=== PATIENT | female | born 1945 | race Caucasian/White ===

== ENCOUNTER → 2016-03-06 | Outpatient (CLI) | payer BC ==
[~2016-03-06] MED LIST: ALBU1AER9 PO; DOXY100C76 PO; ESCI1TAB10 PO; FENO48TA9 PO; FLUC150T PO; LEVO75TA PO; MEMA10TA PO; SPRIN/30 INH; TRIA0.1C55
[2016-03-06 13:28] LABS: BASO % 0.7 %; BASO ABS # 0.05 K/uL (0-0.2); COMPLETE YES; EOS % 5.4 %; IG% 0.1 %; LYMPH % 33.5 %; LYMPH ABS # 2.24 K/uL (1.2-3.4); MEAN CELL VOLUME 84.2 fL (80-100); MEAN CORPUSCULAR HEMOGLOBIN 27.3 pg (25-34); MEAN CORPUSCULAR HGB CONC 32.4 g/dl (32-36); NEUT % 53.3 %; PLATELET COUNT 349 K/uL (130-400); RED BLOOD COUNT 4.99 M/uL (4.2-5.4); WHITE BLOOD COUNT 6.69 K/uL (4.8-10.8)
[2016-03-06 13:36] LABS: ALT/SGPT 22 U/L (12-78); AST/SGOT 16 U/L (15-37); BLOOD UREA NITROGEN 14 mg/dl (7-18); BUN/CREATININE RATIO 12.4 (10-20); CALCIUM 9.8 mg/dl (8.5-10.1); CARBON DIOXIDE 29 mmol/L (21-32); CHLORIDE 105 mmol/L (98-107); CHOLESTEROL 219 mg/dl (0-200); GLUCOSE 91 mg/dl (70-99); POTASSIUM 4.2 mmol/L (3.5-5.1); SODIUM 142 mmol/L (136-145)
[2016-03-06 13:46] LABS: CHOLESTEROL/HDL RATIO 4.1; HDL CHOLESTEROL 53 mg/dl; LDL CHOLESTEROL CALCULATED 133 mg/dl; TRIGLYCERIDES 164 mg/dl (0-150); VERY LOW DENSITY LIPOPROT CALC 33 mg/dl
== END | disposition home or self-care (01) ==
LOC: C.LABMFLN 09:01
PROVIDERS: ATTEND Family Medicine
DX: E03.9 Hypothyroidism, unspecified (principal); E78.5 Hyperlipidemia, unspecified; R41.3 Other amnesia

== ENCOUNTER → 2016-03-15 | Outpatient (CLI) | payer BC ==
--- NOTE | 2016-03-15 11:39 | DIAGNOSTIC IMAGING REPORT ---
CERVICAL SPINE 5 VIEWS CLINICAL HISTORY: Neck pain. Injury several months ago. FINDINGS: AP, lateral, bilateral oblique, and odontoid views of the cervical spine are obtained. No prior studies are able for comparison at the time of dictation. The skeletal structures are osteopenic. There is no radiographic evidence of fracture or subluxation. There is straightening of the cervical lordosis. The odontoid process and lateral masses appear intact on the open-mouth view. The spinolaminar line is preserved. Vertebral body height is maintained. There is minimal anterolisthesis at C2-C3. Alignment is otherwise preserved. Anterior osteophytes are seen from C4 through C7. There is moderate degenerative disc space narrowing at C4-C5, C5-C6, and C6-C7. Posterior disc osteophyte complexes at these levels likely contribute to acquired compromise of the central canal. The spinous processes appear intact. There is mild bilateral neural foraminal stenosis seen from C4-C5 through C6-C7 on the oblique views. The prevertebral and paraspinous soft tissues are within normal limits. Visualized apical lung parenchyma is clear as imaged. IMPRESSION: 1. There is no radiographic evidence of fracture or malalignment involving the cervical spine. 2. Osteopenia and spondylotic change as above. Dictated: 03/15/2016 11:32 AM Transcribed: 03/15/2016 11:38 AM [email or web address] Electronically signed by: Freddy Collado M.D. 03/15/2016 11:44 AM Dictated Date/Time: 03/15/2016 11:32 AM
--- NOTE | 2016-03-15 11:46 | DIAGNOSTIC IMAGING REPORT ---
SINGLE VIEW CHEST CLINICAL HISTORY: COPD. Cough. FINDINGS: An AP, portable, upright chest radiograph is compared to study dated 01/23/2010. The cardiomediastinal silhouette is unremarkable. Emphysema and chronic interstitial thickening are identified. This is similar to previous. There is no radiographic evidence of superimposed airspace consolidation or pleural effusion is identified. No pneumothorax is seen. The skeletal structures are osteopenic. The bony thorax is grossly intact. Cholecystectomy clips are noted in the right upper quadrant. IMPRESSION: 1. Emphysema. 2. There is no evidence of superimposed airspace consolidation or pleural effusion. Electronically signed by: Freddy Collado M.D. 03/15/2016 11:44 AM Dictated Date/Time: 03/15/2016 11:42 AM
== END | disposition home or self-care (01) ==
LOC: C.RAD 10:38
PROVIDERS: ATTEND Family Medicine
DX: J44.9 Chronic obstructive pulmonary disease, unspecified (principal); R05 Cough; J43.9 Emphysema, unspecified

== ENCOUNTER → 2016-05-14 | Outpatient (CLI) | payer BC | END | disposition home or self-care (01) | LOC: C.LABMFLN 11:25 | PROVIDERS: ATTEND Family Medicine | DX: R30.0 Dysuria (principal) ==

== ENCOUNTER → 2016-05-24 | Outpatient (CLI) | payer BC ==
[~2016-05-24] MED LIST changes: +OPTIRAY 320 IV PRN
--- NOTE | 2016-05-24 09:48 | DIAGNOSTIC IMAGING REPORT ---
ABDOMEN AND PELVIS CT EXAMINATION PRE AND POST INTRAVENOUS CONTRAST CT DOSE: 1078.20 mGycm HISTORY: Hematuria Hematuria DO A/P COMBO Argues SCHEDULING WAS CALLED TECHNIQUE: Multiaxial CT images of the abdomen and pelvis were performed pre and post intravenous contrast enhancement. COMPARISON STUDY: None. FINDINGS: Examination is performed to multi phase fashion. The unenhanced component of the study shows no abnormal calcifications of the urinary tracts. Enhancement characteristics are uniform. There is no significant space-occupying lesion. Bladder is midline. Bowel pattern is nonobstructive. Liver spleen pancreas are uniform. Gallbladder is been removed. Lung bases are considered clear. IMPRESSION: 1. Negative study of the urinary tracts. 2. Negative CT of the abdomen and pelvis post cholecystectomy Electronically signed by: Arden Holt M.D. 05/24/2016 9:47 AM Dictated Date/Time: 05/24/2016 9:40 AM
== END | disposition home or self-care (01) ==
LOC: C.CTS 08:43
PROVIDERS: ATTEND Family Medicine
DX: R31.9 Hematuria, unspecified (principal)

== ENCOUNTER → 2016-06-05 | Outpatient (CLI) | payer BC ==
[~2016-06-05] MED LIST changes: +FENOFIBRATE PO; +FLUT50SP45 NAE; +LEVO75TA5 PO; +MOME16.7 INH; -OPTIRAY 320 IV PRN; +UMEC1AER INH
--- NOTE | 2016-06-05 09:16 | DIAGNOSTIC IMAGING REPORT ---
SINUS CT WITHOUT CONTRAST CLINICAL HISTORY: Chronic sinusitis. COMPARISON STUDY: None. Technique: Helical axial images of the sinuses were obtained without IV contrast. Coronal reformats were viewed. CT DOSE: 567.85 mGy.cm FINDINGS: Visualized portions of the intracranial contents are unremarkable on this unenhanced exam. There is no fluid within the middle ears. There is a small amount of fluid within the right mastoid air cells.. Ossicles are intact. Orbits are unremarkable. There is mild mucosal thickening of the frontal sinuses with moderate mucosal thickening of the ethmoid sinuses. There are secretions within the left axillary and sphenoid sinuses. Note is made of nav bullosa of the bilateral middle turbinates, right larger than left. There is mild rightward deviation of the nasal septum with spur formation. There is no bony destruction. There is no mass within the sinuses or nasal cavity. The right ostiomeatal complex is narrowed by mucosal thickening. The left is patent. The frontoethmoidal recesses are narrowed by mucosal thickening. IMPRESSION: 1. Moderate mucosal thickening of the ethmoid sinuses with mild mucosal thickening of the remainder of the sinuses, as described above. No bony destruction. 2. Multiple narrowed and occluded major drainage pathways due to mucosal thickening as described above. 3. 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 Mild rightward deviation of the nasal septum. Electronically signed by: Aubrey Can M.D. 06/05/2016 9:14 AM Dictated Date/Time: 06/05/2016 9:07 AM
== END | disposition home or self-care (01) ==
LOC: C.CTS 08:44
PROVIDERS: ATTEND Family Medicine
DX: J02.9 Acute pharyngitis, unspecified (principal); J34.89 Other specified disorders of nose and nasal sinuses

== ENCOUNTER → 2016-10-01 | Outpatient (CLI) | payer BC ==
[~2016-10-01] MED LIST changes: -FENOFIBRATE PO; -FLUT50SP45 NAE; -LEVO75TA5 PO; -MOME16.7 INH; -UMEC1AER INH
== END | disposition home or self-care (01) ==
LOC: C.LABMFLN 11:45
PROVIDERS: ATTEND Family Medicine
DX: R39.89 Other symptoms and signs involving the genitourinary system (principal)

== ENCOUNTER → 2016-10-11 | Outpatient (CLI) | payer BC ==
[2016-10-11 13:51] LABS: MANUAL MICROSCOPIC REQUIRED? NO; REVIEW REQ? NO; URINE APPEARANCE CLEAR (CLEAR); URINE BILIRUBIN NEG (NEG); URINE COLOR YELLOW; URINE NITRITE NEG (NEG); URINE PH 6.5 (4.5-7.5); UROBILINOGEN NEG (NEG)
[2016-10-11 15:03] LABS: CHOLESTEROL/HDL RATIO 4.5; THYROID STIMULATING HORMONE 3.2 uIu/ml (0.300-4.500)
== END | disposition home or self-care (01) ==
LOC: C.LABMFLN 06:51
PROVIDERS: ATTEND Family Medicine
DX: R31.9 Hematuria, unspecified (principal); E78.5 Hyperlipidemia, unspecified; E03.9 Hypothyroidism, unspecified

== ENCOUNTER → 2016-10-30 | Outpatient (CLI) | payer BC ==
--- NOTE | 2016-10-30 15:06 | PULMONARY FUNCTION TEST ---
Spirometry is consistent with a mild to moderate obstructive pattern. Repeat study done following bronchodilator showed no significant change in function. Flow volume loops were consistent with spirometric findings. Lung volume showed an increased residual volume and RV/TLC ratio. This would be compatible with air trapping and obstruction. Diffusion capacity was decreased to 62% of predicted. However, when corrected for alveolar ventilation, it was 102%. Advise clinical correlation.
== END | disposition home or self-care (01) ==
LOC: C.RC 10:26
PROVIDERS: ATTEND Family Medicine
DX: J44.9 Chronic obstructive pulmonary disease, unspecified (principal)

== ENCOUNTER → 2016-11-30 | Outpatient (CLI) | payer BC ==
--- NOTE | 2016-11-30 15:48 | MAMMOGRAPHY REPORT ---
BILATERAL DIGITAL SCREENING MAMMOGRAM WITH CAD: 11/30/2016 CLINICAL HISTORY: Routine screening. Patient has no complaints. TECHNIQUE: Current study was also evaluated with a Computer Aided Detection (CAD) system. Bilateral CC and MLO views were obtained. COMPARISON: Comparison is made to exams dated: 11/30/2015 mammogram, 11/15/2014 mammogram, 11/12/2013 m ammogram - [facility], and [facility]/02/[facility]. BREAST COMPOSITION: The tissue of both breasts is almost entirely fatty. FINDINGS: No suspicious masses, calcifications, or areas of architectural distortion are noted in ei ther breast. There has been no significant interval change compared to prior exams. A linear scar ma rker denotes a scar on the left superior breast. IMPRESSION: ACR BI-RADS CATEGORY 2: BENIGN There is no mammographic evidence of malignancy. A 1 year screening mammogram is recommended. The pa tient will receive written notification of the results. Approximately 10% of breast cancers are not detected with mammography. A negative mammographic report should not delay biopsy if a clinically suggestive mass is present. Kim Timmons M.D. /:11/30/2016 10:35:11 Plastic Shaper: Marycarmen JEAN,R, M, [facility] letter sent: Normal 1/2 BI-RADS Code: ACR BI-RADS Category 2: Benign
== END | disposition home or self-care (01) ==
LOC: C.MAMM 09:28
PROVIDERS: ATTEND Family Medicine
DX: Z12.31 Encounter for screening mammogram for malignant neoplasm of breast (principal)

== ENCOUNTER → 2017-01-10 | Outpatient (CLI) | payer BC ==
[2017-01-10 12:40] LABS: INR 0.9 (0.9-1.1); PARTIAL THROMBOPLASTIN RATIO 1.1; PROTHROMBIN TIME (PATIENT) 9.8 SECONDS (9.0-12.0)
[2017-01-10 12:56] LABS: BASO % 0.6 %; BASO ABS # 0.03 K/uL (0-0.2); COMPLETE YES; EOS % 2.6 %; HEMATOCRIT 41.9 % (37-47); IG% 0.2 %; LYMPH % 33.6 %; LYMPH ABS # 1.82 K/uL (1.2-3.4); MEAN CELL VOLUME 83.3 fL (80-100); MEAN CORPUSCULAR HGB CONC 33.7 g/dl (32-36); MEAN PLATELET VOLUME 9.9 fL (7.4-10.4); MONO % 8.5 %; NEUT % 54.5 %; PLATELET COUNT 253 K/uL (130-400); RED BLOOD COUNT 5.03 M/uL (4.2-5.4); WHITE BLOOD COUNT 5.42 K/uL (4.8-10.8)
[2017-01-10 13:48] LABS: POTASSIUM 4.7 mmol/L (3.5-5.1)
== END | disposition home or self-care (01) ==
LOC: C.LABMFLN 08:20
DX: Z01.818 Encounter for other preprocedural examination (principal)

== ENCOUNTER → 2017-02-22 | Day surgery (SDC) | payer BC ==
[2017-01-24 09:11] VITALS: Ht 162.6 cm; Wt 68.2 kg
[~2017-02-22] VITALS: Ht 162.6 cm; Wt 68.2 kg
[~2017-02-22] MED LIST changes: -ALBU1AER9 PO; +CLINDAMYCIN PHOS 150 MG/ML 2 ML VIAL IV SCH; -DOXY100C76 PO; -ESCI1TAB10 PO; -FENO48TA9 PO; +FENOFIBRATE PO; -FLUC150T PO; +FLUT50SP45 NAE; +LACTATED RINGER'S 1000ML 1,000 ML IV SCH; -LEVO75TA PO; +LEVO75TA5 PO; -MEMA10TA PO; +MOME16.7 INH; +OXYMETAZOLINE HCL 0.05% NA SPR 15 ML BTL NAE SCH; -SPRIN/30 INH; -TRIA0.1C55; +UMEC1AER INH
== END | disposition home or self-care (01) ==
LOC: C.PAT 07:16 → EDSTATUS 08:30
DX: J32.9 Chronic sinusitis, unspecified (principal)

== ENCOUNTER → 2017-07-01 | Outpatient (CLI) | payer BC ==
[~2017-07-01] MED LIST changes: -CLINDAMYCIN PHOS 150 MG/ML 2 ML VIAL IV SCH; -LACTATED RINGER'S 1000ML 1,000 ML IV SCH; -OXYMETAZOLINE HCL 0.05% NA SPR 15 ML BTL NAE SCH
[2017-07-01 18:12] LABS: BASO % 0.7 %; BASO ABS # 0.04 K/uL (0-0.2); EOS % 2.5 %; EOS ABS # 0.15 K/uL (0-0.5); HEMATOCRIT 39.7 % (37-47); HEMOGLOBIN 12.9 g/dL (12.0-16.0); IG# 0.02 K/uL (0.00-0.02); LYMPH % 30.4 %; LYMPH ABS # 1.81 K/uL (1.2-3.4); MEAN CORPUSCULAR HEMOGLOBIN 26.7 pg (25-34); MEAN CORPUSCULAR HGB CONC 32.5 g/dl (32-36); MEAN PLATELET VOLUME 9.7 fL (7.4-10.4); MONO % 8.2 %; MONO ABS # 0.49 K/uL (0.11-0.59); NEUT % 57.9 %; NEUT ABS # 3.45 K/uL (1.4-6.5); PLATELET COUNT 283 K/uL (130-400); RED CELL DISTRIBUTION WIDTH CV 14.2 % (11.5-14.5); RED CELL DISTRIBUTION WIDTH SD 42.7 fL (36.4-46.3); WHITE BLOOD COUNT 5.96 K/uL (4.8-10.8)
== END | disposition home or self-care (01) ==
LOC: C.LABMFLN 14:21
PROVIDERS: ATTEND Family Medicine
DX: R23.3 Spontaneous ecchymoses (principal); L30.9 Dermatitis, unspecified

== ENCOUNTER → 2017-10-17 | Outpatient (CLI) | payer BC | END | disposition home or self-care (01) | LOC: C.LABSPEC 18:09 | PROVIDERS: ATTEND Family Medicine | DX: R35.0 Frequency of micturition (principal) ==

== ENCOUNTER 2021-04-10 12:53 | Inpatient (IN) ==
[2021-04-10 14:58] LABS: Basophils # (auto) 0.01 K/uL (0-0.2); Basophils % (auto) 0.4 %; Hematocrit (blood only) 43.9 % (37-47); Lymphocytes # (auto) 0.48 K/uL (1.2-3.4); Lymphocytes % (auto) 19.4 %; Mean Corpuscular Hemoglobin 26.3 pg (25-34); Mean Corpuscular Hgb Conc 31.9 g/dL (32-36); Mean Corpuscular Volume 82.5 fL (80-100); Mean Platelet Volume 9.7 fL (7.4-10.4); Monocytes # (auto) 0.14 K/uL (0.11-0.59); Monocytes % (auto) 5.7 %; Neutrophils # (auto) 1.84 K/uL (1.4-6.5); Neutrophils % (auto) 74.5 %; Platelet Count 168 K/uL (130-400); RDW Standard Deviation 45.3 fL (36.4-46.3); Red Blood Count 5.32 M/uL (4.2-5.4); White Blood Count 2.47 K/uL (4.8-10.8)
[2021-04-10] MEDS ORDERED: ACETAMINOPHEN 500 MG TAB PO STA (15:14)
[2021-04-10] MEDS ORDERED: SODIUM CHLORIDE 0.9% 1000ML 1,000 ML IV ONE ×2 (15:14)
--- NOTE | 2021-04-10 15:17 | XRay Report ---
XR chest 2V PA/lateral HISTORY: 75 years-old Female ILLNESS acute cough with history of lung cancer COMPARISON: Chest CT 06/13/2020 TECHNIQUE: PA and lateral views of the chest FINDINGS: The cardiomediastinal and hilar silhouettes are within normal limits. No pneumothorax, pleural effusi on, airspace consolidation or overt pulmonary edema. Emphysema with chronic interstitial coarsening. 3.1 cm nodular opacity of the paramedian left upper lobe redemonstrated. Degenerative changes of the shoulders and spine. IMPRESSION: 1. No acute process. 2. Emphysema with chronic interstitial coarsening. 3. Left upper lobe lesion redemonstrated, better characterized on the comparison chest CT. ACT 112: Negative or not required by law. The above report was generated using voice recognition software. It may contain grammatical, syntax o r spelling errors. Electronically signed by: Kosta Paiz M.D. 04/10/2021 3:16 PM
--- NOTE | 2021-04-10 15:22 | Emergency Department Note ---
Impression & Plan Encephalopathy, Acute febrile illness, Immunocompromised, Leukopenia ED Provider Note Name: ARMIN HINOJOSA Age: 75 Sex: F Arrives Via: Walk-In Informant: Patient (mildly confused), Son - Naren ED Provider: Eliot Leo MD Chief Complaint: confusion Impression: As per impressions above Medical Decision Makin-year-old female arrives for evaluation of confusion for the last 24 hours. She is on oral chemotherapy for stage IV lung cancer and has been somewhat confused with a fever for the last 24 hours. On arrival patient is mildly confused though not significantly toxic appearing. Due to extremely high ER volumes patient initially had critical pathway labs and I evaluated her in a triage waiting room initially while awaiting another bed availability. On examination patient is mildly confused but oriented. Her white blood cell count is down to 2.4 which is below her baseline 5. Her neutrophil count is 1.8K and does not fully neutropenic at this time. That said I is quite concerned that she is early sepsis and thus charge nurse made aware and the bed was eventually found in short order. Blood cultures lactic acid were ordered fortunately lactic acid is okay. She did develop a fever while here and at that point empiric antibiotics with meropenem was started. Patient did not require 30/kg fluid bolus given her blood pressure and lactic acid were okay. She did receive some Tylenol which did seem to help her encephalopathy some. I reviewed the case with her oncologist at [facility] who suggested we get a CT of the head due to her known metastatic disease which fortunately is negative. Furthermore we discussed plan to hospitalize to monitor overnight given the episodes of encephalopathy. At time of hospitalization she is looking much improved after IV fluids and she is comfortable. We will not overly thrilled on staying she is willing to stay for further evaluation. Son is completely on board with this plan as well. At this point there is no clear source of infection is Covid testing is negative chest x-ray is without clear evidence of infiltrate and UA is clean. Her exam is not consistent with meningitis and do not think LP would be indicated at this time either. Her abdominal exam is benign without perit onitis. Prior Medical Record and Triage/Nursing Notes reviewed by Me Additional history obtained from chart Differentials:Viral syndrome, otitis, pharyngitis, pneumonia, influenza, meningitis, urinary tract infection, sepsis, bacteremia, as well as other pathologies. Vital Signs: reviewed and remarkable for no significant abnormalities Interventions: See Below Labs:Reviewed and remarkable for leukocytosis Imaging:CT of the head is without acute findings as per radiology, 2 1 view chest x-ray is negative per radiology EKG:Per My Interpretation: Indication confusion: NSR 68 bpm, qtc 444. No Ectopy. No Ischemia. Compared to EKG 01/23/10, no significant changes. Cardiac/Tele Monitoring: Cardiac Monitoring: An Order was placed for continuous cardiac monitoring. The monitor shows a rate of 60 with a normal sinus rhythm. Consults:[facility], [facility] hospitalist Plan: Disposition:Hospitalization. Condition: Good History of Present Illness:75-year-old female arrives for evaluation of fevers. Patient with known metastatic cancer who is currently on oral chemotherapy. She states for the last 2 to 3 days worsening weakness and confusion. Associated with chills and fever of 101 at home. She notes she feels mildly nauseous. Patient did have some diarrhea recently.Denies any vomiting, shortness of breath, chest pain, syncope, headache, neck pain, abdominal pain, back pain, leg swelling, calf pain, rashes, urinary burning, other symptoms. ROS: See above HPI for pertinent positives & negatives. A total of 10 systems reviewed and were otherwise negative. Past Medical History:See Below Past Surgical History:See Below Family History:See Below Social History:See Below Home Medications:See Below Allergies:See Below Vitals:Blood Pressure: 118/62, Pulse 67, RR 20, T 37.1C, O2 99% on RA Physical Exam: GENERAL: Patient is uncomfortable and ill appearing and in moderate distress. EYES: No scleral icterus, unremarkable pupils. ENT: Mucous membranes dry, no nasal congestion. NECK: No masses appreciated, nomeningismus, trachea is midline. RESPIRATORY: No dyspnea. Clear to auscultation and equal bilaterally. No wheeze, no rhonchi. CARDIOVASCULAR: Regular rate and rhythm.No murmurs, rubs, gallops appreciated. GASTROINTESTINAL: Abdomen soft, non-tender, no peritonitis.Bowel sounds positive.No masses appreciated. BACK: No midline tenderness, no CVA tenderness EXTREMITIES: Normal motion all extremities, no cyanosis, no edema. NEUROLOGIC: Mildly confused, Awake, no acute motor or sensory deficits, no focal weakness, cranial nerves grossly intact. SKIN: No rash, no jaundice, no diaphoresis. PSYCH: Appropriate GCS: 15 ED Course: Times/Reassessments: Patient appears to be improving with IV fluids and Tylenol. 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 Cervicalgia Cervicalgia Chronic obstructive pulmonary disease Depression History of meningioma Hyperlipidemia Hypothyroidism Kidney stones Lumbar radiculopathy Medicare annual wellness visit, subsequent Nodule of right lung Non-small cell cancer of left lung Osteoarthritis Otalgia, left ear Right bundle branch block Unstable gait Urinary incontinence Vertigo Surgical History History of bilateral tubal ligation History of cholecystectomy History of colonoscopy History of lumpectomy of left breast History of lung biopsy History of repair of left rotator cuff History of tonsillectomy and adenoidectomy History of total abdominal hysterectomy and bilateral salpingo-oophorectomy Status post gamma knife treatment Family History Father Family history of esophageal cancer Other No family history of adverse response to anesthesia Social History Smoking Status: Never smoker Second Hand Exposure: Yes; Hx Alcohol Use: No Hx Substance Use: No Preferred Language: Kyrgyz Communication Ability: Impaired Celery Tier Required: No Beliefs That Will Affect Care: None marital status: / Current Living Situation: Alone Other Information That Helps Us Care for You: No Feels Safe at Home: Yes Safety Concerns: Feels Safe At This Time Seatbelt Use: always Assistive Devices: Denture - Upper, Denture - Lower and Glasses Allergies Allergies Allergy/AdvReac Type Severity Reaction Status Date / Time alendronate sodium Allergy Intermediate FLU LIKE Verified 04/10/21 15:58 SYMPTOMS Cephalosporins Allergy Intermediate Hives Verified 04/10/21 15:58 Penicillins Allergy Unknown UNKNOWN, Verified 04/10/21 15:58 TOLD A CHILD Home Meds Home Medications Medication Instructions Recorded Confirmed fluticasone propionate 50 2 sprays INTRANASAL QAM PRN gm 09/02/19 04/10/21 mcg/actuation nasal spray,suspension (Flonase Allergy Relief) benzonatate 100 mg capsule 100 mg PO TID PRN 04/10/21 04/10/21 folic acid 1 mg tablet 1 mg PO DAILY 04/10/21 04/10/21 ondansetron HCl 8 mg tablet 8 mg PO Q12H PRN 04/10/21 04/10/21 osimertinib 80 mg tablet (Tagrisso) 80 mg PO QPM 04/10/21 04/10/21 prochlorperazine maleate 10 mg 10 mg PO QID PRN 04/10/21 04/10/21 tablet Previous Rx's Medication Instructions Recorded montelukast 10 mg tablet 10 mg PO DAILY #90 tab 04/19/20 (Singulair) albuterol sulfate 90 mcg/actuation 2 puff INHALATION Q4H PRN #18 gm 11/09/20 aerosol inhaler escitalopram oxalate 20 mg tablet 20 mg PO DAILY #90 tab 12/26/20 fenofibric acid (choline) 45 mg 45 mg PO QAM #90 cap 03/07/21 capsule,delayed release meloxicam 15 mg tablet 15 mg PO DAILY PRN #30 tab 03/07/21 levothyroxine 112 mcg tablet 112 mcg PO DAILY #90 tab 03/23/21 Results & Data (ED) Vital Signs Vital Signs - 24 hr 04/10/21 13:48 04/10/21 16:50 04/10/21 17:21 Temperature 37.1 C 38.1 C H Temperature Source Temporal Artery Scan Oral Pulse Rate 67 Pulse Rate [Apical] 80 Respiratory Rate 20 20 Respiratory Effort / Characteristics Non-Labored Spontaneous Respiratory Depth Normal Respiratory Pattern Regular Blood Pressure 118/62 Blood Pressure Mean 80 Pulse Oximetry 99 96 Oxygen Delivery Method Room Air Room Air Sepsis Recent Fever Within 48 Hours Yes Sepsis New/Unexplained Change in Mental Status Yes Sepsis Action Taken by Nursing No Action Required Laboratory Data Result diagrams: 04/11/21 07:43 04/11/21 07:43 Lab Results 04/10/21 04/10/21 04/10/21 Range/Units 14:43 14:43 16:19 WBC 2.47 L (4.8-10.8) K/uL RBC 5.32 (4.2-5.4) M/uL Hgb 14.0 (12.0-16.0) g/dL Hct 43.9 (37-47) % MCV 82.5 (80-100) fL MCH 26.3 (25-34) pg MCHC 31.9 L (32-36) g/dL RDW Std Deviation 45.3 (36.4-46.3) fL RDW Coeff of Shalom 15.0 H (11.5-14.5) % Plt Count 168 (130-400) K/uL MPV 9.7 (7.4-10.4) fL Immature Gran % (Auto) 0.0 % Neut % (Auto) 74.5 % Lymph % (Auto) 19.4 % [place] % (Auto) 5.7 % Eos % (Auto) 0.0 % Baso % (Auto) 0.4 % Neut # (Auto) 1.84 (1.4-6.5) K/uL Lymph # (Auto) 0.48 L (1.2-3.4) K/uL [place] # (Auto) 0.14 (0.11-0.59) K/uL Eos # (Auto) 0.00 (0-0.5) K/uL Baso # (Auto) 0.01 (0-0.2) K/uL Immature Gran # (Auto) 0.00 (0.00-0.02) K/uL Sodium Cancelled Potassium Cancelled Chloride Cancelled Carbon Dioxide Cancelled Anion Gap Cancelled BUN Cancelled Creatinine Cancelled Est Cr Clr Drug Dosing Cancelled Est GFR ( Amer) Cancelled Est GFR (Non-Af Amer) Cancelled BUN/Creatinine Ratio Cancelled Glucose Cancelled Lactate 0.8 (0.4-2.0) mmol/L Calcium Cancelled Total Bilirubin Cancelled AST Cancelled ALT Cancelled Alkaline Phosphatase Cancelled Total Protein Cancelled Albumin Cancelled Globulin Cancelled Albumin/Globulin Ratio Cancelled Procalcitonin (0-0.5) ng/ml Urine Color Urine Appearance (Clear) Urine pH (4.5-7.5) Ur Specific [place] (1.000-1.030) Urine Protein (Negative) Urine Glucose (UA) (Negative) Urine Ketones (Negative) Urine Blood (Negative) Urine Nitrite (Negative) Urine Bilirubin (Negative) Urine Urobilinogen (Negative) Ur Leukocyte Esterase (Negative) Urine WBC (Auto) (0-5) /hpf Urine RBC (Auto) (0-4) /hpf U Hyaline Cast (Auto) (0-5) /lpf U Epithel Cells (Auto) (0-5) /lpf Urine Bacteria (Auto) (Negative) Nasal Screen MRSA (PCR) (Negative) SARS-CoV-2, RNA, NAAT (NEGATIVE) 04/10/21 04/10/21 04/10/21 Range/Units 16:19 16:19 17:19 WBC (4.8-10.8) K/uL RBC (4.2-5.4) M/uL Hgb (12.0-16.0) g/dL Hct (37-47) % MCV (80-100) fL MCH (25-34) pg MCHC (32-36) g/dL RDW Std Deviation (36.4-46.3) fL RDW Coeff of Shalom (11.5-14.5) % Plt Count (130-400) K/uL MPV (7.4-10.4) fL Immature Gran % (Auto) % Neut % (Auto) % Lymph % (Auto) % [place] % (Auto) % Eos % (Auto) % Baso % (Auto) % Neut # (Auto) (1.4-6.5) K/uL Lymph # (Auto) (1.2-3.4) K/uL [place] # (Auto) (0.11-0.59) K/uL Eos # (Auto) (0-0.5) K/uL Baso # (Auto) (0-0.2) K/uL Immature Gran # (Auto) (0.00-0.02) K/uL Sodium 133 L Potassium 3.9 Chloride 101 Carbon Dioxide 24 Anion Gap 8 BUN 19 Creatinine 1.37 H Est Cr Clr Drug Dosing Not Reportable Est GFR ( Amer) 43.9 Est GFR (Non-Af Amer) 37.9 BUN/Creatinine Ratio 13.9 Glucose 115 H Lactate (0.4-2.0) mmol/L Calcium 8.9 Total Bilirubin 0.6 AST 21 ALT 15 Alkaline Phosphatase 83 Total Protein 7.1 Albumin 3.9 Globulin 3.2 Albumin/Globulin Ratio 1.2 Procalcitonin 0.28 (0-0.5) ng/ml Urine Color Urine Appearance (Clear) Urine pH (4.5-7.5) Ur Specific [place] (1.000-1.030) Urine Protein (Negative) Urine Glucose (UA) (Negative) Urine Ketones (Negative) Urine Blood (Negative) Urine Nitrite (Negative) Urine Bilirubin (Negative) Urine Urobilinogen (Negative) Ur Leukocyte Esterase (Negative) Urine WBC (Auto) (0-5) /hpf Urine RBC (Auto) (0-4) /hpf U Hyaline Cast (Auto) (0-5) /lpf U Epithel Cells (Auto) (0-5) /lpf Urine Bacteria (Auto) (Negative) Nasal Screen MRSA (PCR) (Negative) SARS-CoV-2, RNA, NAAT NEGATIVE (NEGATIVE) 04/10/21 04/10/21 Range/Units 17:48 17:48 WBC (4.8-10.8) K/uL RBC (4.2-5.4) M/uL Hgb (12.0-16.0) g/dL Hct (37-47) % MCV (80-100) fL MCH (25-34) pg MCHC (32-36) g/dL RDW Std Deviation (36.4-46.3) fL RDW Coeff of [place]al[place] (11.5-14.5) % Plt Count (130-400) K/uL MPV (7.4-10.4) fL Immature Gran % (Auto) % Neut % (Auto) % Lymph % (Auto) % [place] % (Auto) % Eos % (Auto) % Baso % (Auto) % Neut # (Auto) (1.4-6.5) K/uL Lymph # (Auto) (1.2-3.4) K/uL [place] # (Auto) (0.11-0.59) K/uL Eos # (Auto) (0-0.5) K/uL Baso # (Auto) (0-0.2) K/uL Immature Gran # (Auto) (0.00-0.02) K/uL Sodium Potassium Chloride Carbon Dioxide Anion Gap BUN Creatinine Est Cr Clr Drug Dosing Est GFR ( Amer) Est GFR (Non-Af Amer) BUN/Creatinine Ratio Glucose Lactate (0.4-2.0) mmol/L Calcium Total Bilirubin AST ALT Alkaline Phosphatase Total Protein Albumin Globulin Albumin/Globulin Ratio Procalcitonin (0-0.5) ng/ml Urine Color Dark Yellow Urine Appearance Clear (Clear) Urine pH 5.5 (4.5-7.5) Ur Specific [place] 1.029 (1.000-1.030) Urine Protein 1+ H (Negative) Urine Glucose (UA) Negative (Negative) Urine Ketones Trace H (Negative) Urine Blood Negative (Negative) Urine Nitrite Negative (Negative) Urine Bilirubin 1+ H (Negative) Urine Urobilinogen Negative (Negative) Ur Leukocyte Esterase Negative (Negative) Urine WBC (Auto) 5-10 H (0-5) /hpf Urine RBC (Auto) 5-10 H (0-4) /hpf U Hyaline Cast (Auto) 10-30 H (0-5) /lpf U Epithel Cells (Auto) >30 H (0-5) /lpf Urine Bacteria (Auto) Negative (Negative) Nasal Screen MRSA (PCR) Negative (Negative) SARS-CoV-2, RNA, NAAT (NEGATIVE) Administered Medications Acetaminophen (Acetaminophen 325 Mg Tab) 650 mg PO Q4H PRN PRN Reason: Pain or Fever Stop: 05/10/21 21:01 Last Admin: 04/11/21 06:57 Dose: 650 mg Documented by: [id number] Heparin Sodium (Porcine) (Heparin Sod 5,000 Unit/0.5 Ml Vial) 5,000 units SQ Q8H [facility] Stop: 05/11/21 00:00 Last Admin: 04/11/21 03:09 Dose: Not Given Documented by: [id number] Potassium Chloride/Sodium Chloride (Normal Saline W/20 Meq Kcl) 20 meq in 1,000 mls @ 100 mls/hr IV .Q10H [facility] Stop: 05/10/21 23:06 Last Admin: 04/11/21 01:22 Dose: 100 mls/hr Documented by: [id number] Levothyroxine Sodium (Levothyroxine Sodium 112 Mcg Tablet) 112 mcg PO DAILYBB [facility] Stop: 05/11/21 06:29 Last Admin: 04/11/21 05:55 Dose: 112 mcg Documented by: [id number] Miscellaneous (Fenofibric Acid (Choline): Order Awaiting Action) 1 ea N/A QS [facility] Stop: 05/11/21 07:59 Last Admin: 04/11/21 09:18 Dose: Not Given Documented by: [id number] Morphine Sulfate (Morphine Sulfate 2 Mg/Ml Carp) 1 mg IV Q4H PRN PRN Reason: Breakthrough Pain Stop: 04/24/21 21:01 Last Admin: 04/10/21 21:35 Dose: 1 mg Documented by: [id number] Discontinued Medications Acetaminophen (Acetaminophen 500 Mg Tab) 1,000 mg PO NOW STA Stop: 04/10/21 15:15 Last Admin: 04/10/21 16:01 Dose: 1,000 mg Documented by: [id number] Sodium Chloride (Nss 1000ml) 1,000 mls @ 999 mls/hr IV .Q1H1M ONE Stop: 04/10/21 16:14 Last Infusion: 04/10/21 16:45 Dose: 0 mls/hr Documented by: [id number] Admin: 04/10/21 15:30 Dose: 999 mls/hr Documented by: [id number] Sodium Chloride (Nss 1000ml) 1,000 mls @ 999 mls/hr IV .Q1H1M ONE Stop: 04/10/21 16:14 Last Infusion: 04/10/21 16:45 Dose: 0 mls/hr Documented by: [id number] Admin: 04/10/21 15:30 Dose: 999 mls/hr Documented by: [id number] Meropenem 500 mg/ Syringe 10 mls @ 2 mls/min IV NOW STA; Protocol Stop: 04/10/21 17:12 Last Admin: 04/10/21 18:28 Dose: 2 mls/min Documented by: [id number] Meropenem 500 mg/ Syringe 10 mls @ 2 mls/min IV Q6H BOBBI; Protocol Stop: 04/13/21 00:29 Last Admin: 04/11/21 01:21 Dose: 2 mls/min Documented by: [id number] Imaging Data Radiologist's Impression: Chest X-Ray 04/10/21 13:53 XR chest 2V PA/lateral HISTORY: 75 years-old Female ILLNESS acute cough with history of lung cancer COMPARISON: Chest CT 06/13/2020 TECHNIQUE: PA and lateral views of the chest FINDINGS: The cardiomediastinal and hilar silhouettes are within normal limits. No pneumothorax, pleural effusion, airspace consolidation or overt pulmonary edema. Emphysema with chronic interstitial coarsening. 3.1 cm nodular opacity of the paramedian left upper lobe redemonstrated. Degenerative changes of the shoulders and spine. IMPRESSION: 1. No acute process. 2. Emphysema with chronic interstitial coarsening. 3. Left upper lobe lesion redemonstrated, better characterized on the comparison chest CT. ACT 112: Negative or not required by law. The above report was generated using voice recognition software. It may contain grammatical, syntax or spelling errors. Electronically signed by: Kosta Paiz M.D. 04/10/2021 3:16 PM Discharge Plan Visit Data Chief Complaint: Fever Stated Complaint: FEVER OF 100.1, STAGE 4 LUNG CANCER, [place] ED Provider: Eliot Leo Discharge Problem: Encephalopathy, Acute febrile illness, Immunocompromised, Leukopenia Patient Disposition: Admitted As Inpatient Discharge Instructions Interventions: ED Discharge Assessment Last Done: 04/10/21 23:30 Discharge Problem: Leukopenia Qualifiers: Leukopenia type: neutropenia Neutropenia type: secondary to cancer chemotherapy Qualified Code(s): D70.1 - Agranulocytosis secondary to cancer chemotherapy
[2021-04-10 16:58] LABS: Alanine Aminotransferase 15 U/L (7-52); Albumin Globulin Ratio 1.2 (0.9-2); Albumin Level 3.9 gm/dl (3.4-5.0); Alkaline Phosphatase 83 U/L (34-104); Anion Gap 8 (3-11); Aspartate Aminotransferase 21 U/L (13-39); BUN Creatinine Ratio 13.9 (10-20); Bilirubin,Total 0.6 mg/dl (0.2-1.0); Blood Urea Nitrogen 19 mg/dl (6-23); Calcium 8.9 mg/dl (8.5-10.1); Carbon Dioxide 24 mmol/L (21-32); Chloride 101 mmol/L (98-107); Est GFR (African American) 43.9 ml/min; Est GFR (Non-African American) 37.9 ml/min; Globulin 3.2 gm/dl (2.5-4.0); Glucose 115 mg/dl (70-99(Fasting)); Potassium 3.9 mmol/L (3.5-5.1); Sodium 133 mmol/L (136-145); Total Protein 7.1 gm/dl (6.0-8.3)
[2021-04-10] MEDS ORDERED: MEROPENEM 500 MG in SYRINGE 0 ML IV STA (17:08)
[2021-04-10] MEDS ORDERED: MEROPENEM CONSULT ACTIVE PRN ×2 (17:08→21:04)
[2021-04-10 18:00] LABS: Appearance Urine Clear (Clear); Bacteria Urine Automated Negative (Negative); Blood Urine Negative (Negative); Color Urine Dark Yellow; Epithelial Cell Urine Auto >30 /lpf (0-5); Glucose Urine UA Negative (Negative); Ketones Urine Trace (Negative); Leukocyte Esterase Urine Negative (Negative); Nitrite Urine Negative (Negative); Protein Urine 1+ (Negative); Specific Gravity Urine 1.029 (1.000-1.030); Urobilinogen Urine Negative (Negative); pH Urine 5.5 (4.5-7.5)
[2021-04-10 18:03] LABS: Bilirubin Urine 1+ (Negative)
--- NOTE | 2021-04-10 18:15 | CT Scan Report ---
CT head/brain wo con CLINICAL HISTORY: 75 years-old Female with confusion. Acutely altered mental status TECHNIQUE: Multiple axial CT images of the head were obtained without contrast. A dose lowering tech nique was utilized adhering to the principles of ALARA. CT DOSE: 537.48 mGy.cm COMPARISON: Brain MRI 01/28/2020 FINDINGS: No acute intracranial hemorrhage, midline shift, intra-axial mass, hydrocephalus, territorial ischemi a or abnormal extra-axial collection. 1.2 cm partially calcified extra-axial lesion adjacent to the r ight frontal lobe is unchanged in size. Age-related involutional changes. The calvarium is intact. 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 Bilateral nav bullosa. The paranasal sinuses, mastoid air cells, and middle ear cavities are doretha ar. IMPRESSION: 1. No acute intracranial abnormality. 2. Probable meningioma adjacent to the right frontal lobe redemonstrated measuring 1.2 cm. ACT 112: Negative or not required by law. The above report was generated using voice recognition software. It may contain grammatical, syntax o r spelling errors. Electronically signed by: Kosta Paiz M.D. 04/10/2021 6:14 PM
--- NOTE | 2021-04-10 18:27 | Hospitalist Progress Note ---
Date of Service April 10, 2021 Assessment & Plan (1) Fever: Plan: Fever of unknown origin,? UTI versus chemotherapy reaction - No clear pulmonary, urinary, abd source. No ab pain. Cough at baseline. UA contaminated appearing but not overtly infected appearing, UC pending. WBC 2.47, patient undergoing chemotherapy Absolute neutrophil count 1.84 Creatinine 1.37, normal baseline Lactate normal No transaminitis Procalcitonin negative UA with ketones, bilirubin, epithelial cells, protein. No leukocyte esterase, blood, or bacteria. UC pending MRSA screen pending Covid negative - CT-H: No acute abnormality. Redemonstrated probable meningioma at right frontal lobe about 1.2 cm without mass-effect/edema appreciated. CXR: No acute findings. Emphysema. Lung mass redemonstrated. Continue empiric meropenem CBC daily Blood cultures pending Follow cultures above Admitting EKG normal sinus rhythm, no acute/territorial ST segment changes Patient does have blanching erythematous macules on her knees bilaterally without purulence, skin compromise, tenderness which does not appear cellulitic. No other rash appreciated on skin exam (2) Encephalopathy: Plan: Encephalopathy, suspected metabolic CThead without acute abnormalities. Stable known meningoma without evidence of mass effect/edema. Suspect due to infection/febrile reaction Improved following fluids/Tylenol, not yet at baseline Continue to follow (3) TR (acute kidney injury): Plan: Hydration as above BMP daily Acutely elevated from baseline of normal to 1.37 - Recieved IVF in ER. COntinue ant NSS+KCl overnight 100cc/hr (4) Non-small cell cancer of left lung: Plan: Lung adenocarcinoma status post SBRT, biopsy-proven mets on left rib, Last oncology note 03/18. Proceeding chemoimmunotherapy, osimertinib 80 mg at home Chemotherapy temporarily held in the setting of fever (5) Meningioma: Plan: Meningioma - On CT, stable as above - s/p G KRS 2019 - Low suspicion for contribuation to acute presentation (6) Hypothyroidism: Plan: Continue Synthroid 112 mcg daily Repeat TSH pending (7) Chronic obstructive pulmonary disease: Plan: Albuterol as needed No wheezing, no new oxygen requirement Follow clinically (8) Depression with anxiety: Plan: Stable, at baseline Continue escitalopram 20 mg daily Plan: Prophylaxis: SCDs, heparin in the setting of TR Diet: Regular Disposition: Medical with telemetry CODE STATUS: Subjective Camila is a 75-year-old female with a history of stage IV metastatic lung cancer currently on oral chemotherapy who presents with 2 to 3 days of fevers, weakness, and confusion. Her case was discussed with her [facility] [place] by ER provider who recommended admitting, following overnight with broad-spectrum antibiotics, and cultures. Case was discussed with pharmacy who recommended broad coverage with meropenem and following cultures. Has been for to medicine for admission 1 day of shaking with chills, headache, continued cough from cancer/ephysema. Her son noticed more memorly lapse and confusion that normal. Called [facility] [place] discuss her care who recommended coming to the ER. Jazmine was adament she did not want to go last night. This morning Jazmine's daughter noted she sounded confused and 'aloof' again and was concerned. Son found her at home having chills and confused. Temp 98.7*. Took 1x 500mg tylenol. Called [facility] again and they said bring her to the ER and presented for additional evaluation. Has had some body aches and leg aches since starting chemotherapy. Denies ulcers, skin wounds, open wounds. She has had chronic cough related to her cancer emphysema, this has not changed and she is not short of breath. Denies chest pain, chest pressure, difficulty breathing. No nausea/vomiting today, has had decreased appetite in the previous few days. No diarrhea/constipation Has not taken any daily medications including chemotherapy. Will have chemo brought in, has not taken today. Takes Tagrisso 80mg PO qHS. Started 2 1/2 weeks ago. This past had a [facility] [place] Medical History: Reviewed Medications: Reviewed Surgical History: Reviewed Allergies: Reviewed. Social History: No tobacco, EtoH, recreational drug use. Code Status: Surrogate decision maker would be her son, but would want care discussed with her whole family. DNR/DNI. Review of Systems Review of Systems: All systems reviewed & are unremarkable except as noted in Subjective Physical Exam Physical Exam: General: Alert and oriented to name, place, year, and month. Is slow to orient, but does do so successfully. Somewhat forgetful and tangential at bedside. NAD. Cooperative. HEENT: Atraumatic, normocephalic. Visual acuity and hearing grossly intact. Pupils equal and reactive to light and accommodation. No oral ulcers appreciated Pulm: High-pitched inspiratory brief wheeze on inspiration, trace end expiratory wheezes. No rales. Symmetrical chest rise. No increase in work of breathing. No respiratory distress. Cardiac: RRR, -mrg. Radial pulses intact and symmetrical. Abdominal: Nontender, nondistended, soft. BS present. Extremities: Knees with blanching erythematous macules bilaterally, no purulence, discharge, tenderness. Cyber Security Engineer strength, ankle dorsiflexion/plantar flexion intact bilaterally. Results & Data Results & Data ([facility]) Vital Signs (Past 12 Hours) Vital Signs Temp Pulse Pulse Resp BP Pulse Ox 04/10/21 17:21 80 20 96 04/10/21 16:50 38.1 C H 04/10/21 13:48 37.1 C 67 20 118/62 99 PG Care Time/CCT Total # of Minutes Spent Total Time Spent with Patient: Total time spent is greater than 50% in coordination of care (as documented) at patient's floor/unit and/or counseling patient: Coding Level of Care Code 59632 Subseq Hosp Care Lvl 2 Diagnoses Fever R50.9 Non-small cell cancer of left lung C34.92 Meningioma D32.9 Hypothyroidism E03.9 Chronic obstructive pulmonary disease J44.9 Depression with anxiety F41.8 Encephalopathy G93.40 TR (acute kidney injury) N17.9
[2021-04-10] MEDS: MoRPHine SULFATE 2 MG/ML CARP IV PRN (21:35)
[2021-04-10] MEDS ORDERED: ONDANSETRON INJ 2 MG/ML 2 ML VIAL IV PRN (23:07)
[2021-04-10] MEDS ORDERED: POLYETHYLENE (MIRALAX) 17 GM PACK PO PRN (23:07)
--- NOTE | 2021-04-10 23:12 | Electrocardiogram Report ---
Test Reason : Blood Pressure : / mmHG Vent. Rate : 068 BPM Atrial Rate : 068 BPM P-R Int : 134 ms QRS Dur : 082 ms QT Int : 418 ms P-R-T Axes : 056 -48 038 degrees QTc Int : 444 ms Normal sinus rhythm Left axis deviation Low voltage QRS Nonspecific T wave abnormality Abnormal ECG When compared with ECG of 23-JAN-2010 11:46, QRS axis Shifted left Nonspecific T wave abnormality now evident in Anterior leads Confirmed by Quincy Smith ([id number]) on 04/10/2021 11:12:06 PM Referred By: Confirmed By:Quincy Smith
[2021-04-10] MEDS ORDERED: PATIENT'S HEIGHT AND/OR WEIGHT NEEDED SCH (23:45)
[2021-04-11] MEDS ORDERED: MEROPENEM 500 MG in SYRINGE 0 ML IV SCH (00:30)
[2021-04-11] MEDS: NSS + 20MEQ KCL 20 MEQ/1,000 ML BAG IV SCH ×3 (01:22→22:49)
[2021-04-11] MEDS: HEPARIN SOD 5,000 UNIT/0.5 ML VIAL SQ SCH ×3 (03:09→17:20)
[2021-04-11] MEDS: LEVOTHYROXINE SODIUM 112 MCG TABLET PO SCH (05:55)
[2021-04-11] MEDS: ACETAMINOPHEN 325 MG TAB PO PRN ×2 (06:57→22:05)
[2021-04-11 08:55] LABS: Albumin Globulin Ratio 1.3 (0.9-2); Albumin Level 3.3 gm/dl (3.4-5.0); BUN Creatinine Ratio 13.3 (10-20); Bilirubin,Total 0.4 mg/dl (0.2-1.0); Calcium 8.5 mg/dl (8.5-10.1); Creatinine Clr Calc Pharmacy 46.3 ml/min; Est GFR (African American) 60.6 ml/min; Est GFR (Non-African American) 52.3 ml/min; Globulin 2.5 gm/dl (2.5-4.0); Potassium 4.2 mmol/L (3.5-5.1); Total Protein 5.8 gm/dl (6.0-8.3)
[2021-04-11 09:00] LABS: Hematocrit (blood only) 35.4 % (37-47); Hemoglobin 11.1 g/dL (12.0-16.0); Lymphocytes # (auto) 0.35 K/uL (1.2-3.4); Mean Corpuscular Hemoglobin 26.1 pg (25-34); Mean Corpuscular Hgb Conc 31.4 g/dL (32-36); Mean Corpuscular Volume 83.1 fL (80-100); Monocytes # (auto) 0.09 K/uL (0.11-0.59); Monocytes % (auto) 5.9 %; Neutrophils # (auto) 1.08 K/uL (1.4-6.5); Neutrophils % (auto) 71.1 %; Platelet Count 119 K/uL (130-400); RDW Coefficient of Variation 15.1 % (11.5-14.5); RDW Standard Deviation 45.9 fL (36.4-46.3); Red Blood Count 4.26 M/uL (4.2-5.4); White Blood Count 1.52 K/uL (4.8-10.8)
[2021-04-11] MEDS: ESCITALOPRAM OXALATE 20 MG TAB PO SCH (09:41)
[2021-04-11] MEDS: FOLIC ACID 1 MG TAB PO SCH (09:41)
[2021-04-11] MEDS: MONTELUKAST SODIUM 10 MG TABLET PO SCH (09:42)
[2021-04-11] MEDS: MEROPENEM 500 MG in SYRINGE 0 ML IV SCH ×2 (11:08→17:20)
--- NOTE | 2021-04-11 12:45 | History & Physical Report ---
Date of Service April 10, 2021 Assessment & Plan (1) Fever: Plan: Fever of unknown origin,? UTI versus chemotherapy reaction - No clear pulmonary, urinary, abd source. No ab pain. Cough at baseline. UA contaminated appearing but not overtly infected appearing, UC pending. WBC 2.47, patient undergoing chemotherapy Absolute neutrophil count 1.84 Creatinine 1.37, normal baseline Lactate normal No transaminitis Procalcitonin negative UA with ketones, bilirubin, epithelial cells, protein. No leukocyte esterase, blood, or bacteria. UC pending MRSA screen pending Covid negative - CT-H: No acute abnormality. Redemonstrated probable meningioma at right frontal lobe about 1.2 cm without mass-effect/edema appreciated. CXR: No acute findings. Emphysema. Lung mass redemonstrated. Continue empiric meropenem CBC daily Blood cultures pending Follow cultures above Admitting EKG normal sinus rhythm, no acute/territorial ST segment changes Patient does have blanching erythematous macules on her knees bilaterally without purulence, skin compromise, tenderness which does not appear cellulitic. No other rash appreciated on skin exam (2) Encephalopathy: Plan: Encephalopathy, suspected metabolic CThead without acute abnormalities. Stable known meningoma without evidence of mass effect/edema. Suspect due to infection/febrile reaction Improved following fluids/Tylenol, not yet at baseline Continue to follow (3) TR (acute kidney injury): Plan: Hydration as above BMP daily Acutely elevated from baseline of normal to 1.37 - Recieved IVF in ER. COntinue ant NSS+KCl overnight 100cc/hr (4) Non-small cell cancer of left lung: Plan: Lung adenocarcinoma status post SBRT, biopsy-proven mets on left rib, Last oncology note 03/18. Proceeding chemoimmunotherapy, osimertinib 80 mg at home Chemotherapy temporarily held in the setting of fever (5) Meningioma: Plan: Meningioma - On CT, stable as above - s/p G KRS 2019 - Low suspicion for contribuation to acute presentation (6) Hypothyroidism: Plan: Continue Synthroid 112 mcg daily Repeat TSH pending (7) Chronic obstructive pulmonary disease: Plan: Albuterol as needed No wheezing, no new oxygen requirement Follow clinically (8) Depression with anxiety: Plan: Stable, at baseline Continue escitalopram 20 mg daily Plan: Prophylaxis: SCDs, heparin in the setting of TR Diet: Regular Disposition: Medical with telemetry CODE STATUS: Admission and Anticipated Discharge Date Admission Date: April 10, 2021 History of Present Illness Primary Care Provider: Freddy Stearns MD Camila is a 75-year-old female with a history of stage IV metastatic lung cancer currently on oral chemotherapy who presents with 2 to 3 days of fevers, weakness, and confusion. Her case was discussed with her [facility] oncologist by ER provider who recommended admitting, following overnight with broad-spectrum antibiotics, and cultures. Case was discussed with pharmacy who recommended broad coverage with meropenem and following cultures. Has been for to medicine for admission 1 day of shaking with chills, headache, continued cough from cancer/ephysema. Her son noticed more memorly lapse and confusion that normal. Called [facility] to discuss her care who recommended coming to the ER. Jazmine was adament she did not want to go last night. This morning Jazmine's daughter noted she sounded confused and 'aloof' again and was concerned. Son found her at home having chills and confused. Temp 98.7*. Took 1x 500mg tylenol. Called [facility] again and they said bring her to the ER and presented for additional evaluation. Has had some body aches and leg aches since starting chemotherapy. Denies ulcers, skin wounds, open wounds. She has had chronic cough related to her cancer emphysema, this has not changed and she is not short of breath. Denies chest pain, chest pressure, difficulty breathing. No nausea/vomiting today, has had decreased appetite in the previous few days. No diarrhea/constipation Has not taken any daily medications including chemotherapy. Will have chemo brought in, has not taken today. Takes Tagrisso 80mg PO qHS. Started 2 1/2 weeks ago. This past had a [facility] followup Medical History: Reviewed Medications: Reviewed Surgical History: Reviewed Allergies: Reviewed. Social History: No tobacco, EtoH, recreational drug use. Code Status: Surrogate decision maker would be her son, but would want care discussed with her whole family. DNR/DNI. Allergies Allergy/AdvReac Type Severity Reaction Status Date / Time alendronate sodium Allergy Intermediate FLU LIKE Verified 04/10/21 15:58 SYMPTOMS Cephalosporins Allergy Intermediate Hives Verified 04/10/21 15:58 Penicillins Allergy Unknown UNKNOWN, Verified 04/10/21 15:58 TOLD A CHILD Home Medications Medication Instructions Recorded Confirmed Type fluticasone propionate 50 2 sprays INTRANASAL QAM PRN gm 09/02/19 04/10/21 History mcg/actuation nasal spray,suspension (Flonase Allergy Relief) montelukast 10 mg tablet 10 mg PO DAILY #90 tab 04/19/20 04/10/21 Rx (Singulair) albuterol sulfate 90 mcg/actuation 2 puff INHALATION Q4H PRN #18 gm 11/09/20 04/10/21 Rx aerosol inhaler escitalopram oxalate 20 mg tablet 20 mg PO DAILY #90 tab 12/26/20 04/10/21 Rx fenofibric acid (choline) 45 mg 45 mg PO QAM #90 cap 03/07/21 04/10/21 Rx capsule,delayed release meloxicam 15 mg tablet 15 mg PO DAILY PRN #30 tab 03/07/21 04/10/21 Rx levothyroxine 112 mcg tablet 112 mcg PO DAILY #90 tab 03/23/21 04/10/21 Rx benzonatate 100 mg capsule 100 mg PO TID PRN 04/10/21 04/10/21 History folic acid 1 mg tablet 1 mg PO DAILY 04/10/21 04/10/21 History ondansetron HCl 8 mg tablet 8 mg PO Q12H PRN 04/10/21 04/10/21 History osimertinib 80 mg tablet (Tagrisso) 80 mg PO QPM 04/10/21 04/10/21 History prochlorperazine maleate 10 mg 10 mg PO QID PRN 04/10/21 04/10/21 History tablet Past Med/Surg History Medical History Abnormal CT of the abdomen Abnormal CT scan, chest Abnormal PET scan, lung Allergic rhinitis 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 Cervicalgia Cervicalgia Chronic obstructive pulmonary disease inhaler prn Depression History of meningioma Hyperlipidemia Hypothyroidism Kidney stones Lumbar radiculopathy Medicare annual wellness visit, subsequent Nodule of right lung Non-small cell cancer of left lung Osteoarthritis Otalgia, left ear Right bundle branch block Unstable gait Urinary incontinence Vertigo Surgical History History of bilateral tubal ligation History of cholecystectomy History of colonoscopy History of lumpectomy of left breast benign History of lung biopsy History of repair of left rotator cuff History of tonsillectomy and adenoidectomy History of total abdominal hysterectomy and bilateral salpingo-oophorectomy Status post gamma knife treatment 2013 [place] [facility] Family History Father Family history of esophageal cancer Other No family history of adverse response to anesthesia Social History Smoking Status: Never smoker Second Hand Exposure: Yes; Hx Alcohol Use: No Hx Substance Use: No Preferred Language: Indian Communication Ability: Impaired Director Foundation Required: No Beliefs That Will Affect Care: None marital status: / Current Living Situation: Alone Other Information That Helps Us Care for You: No Feels Safe at Home: Yes Safety Concerns: Feels Safe At This Time Seatbelt Use: always Assistive Devices: Denture - Upper, Denture - Lower and Glasses Review of Systems Review of Systems: All systems reviewed & are unremarkable except as noted in Subjective Physical Exam Physical Exam: General: Alert and oriented to name, place, year, and month. Is slow to orient, but does do so successfully. Somewhat forgetful and tangential at bedside. NAD. Cooperative. HEENT: Atraumatic, normocephalic. Visual acuity and hearing grossly intact. Pupils equal and reactive to light and accommodation. No oral ulcers appreciated Pulm: High-pitched inspiratory brief wheeze on inspiration, trace end expiratory wheezes. No rales. Symmetrical chest rise. No increase in work of breathing. No respiratory distress. Cardiac: RRR, -mrg. Radial pulses intact and symmetrical. Abdominal: Nontender, nondistended, soft. BS present. Extremities: Knees with blanching erythematous macules bilaterally, no purulence, discharge, tenderness. Energy Trader strength, ankle dorsiflexion/plantar flexion intact bilaterally. Results & Data Results & Data ([facility]) Vital Signs (Past 12 Hours) Vital Signs Temp Pulse Resp BP Pulse Ox 04/11/21 09:34 86 18 136/78 95 04/11/21 08:08 37.4 C 04/11/21 06:56 37.6 C H 04/11/21 05:27 81 20 126/63 92 04/11/21 01:28 36.4 C L 88 22 132/75 94 Code Status & VTE Plan VTE Prophylaxis Plan VTE Prophylaxis will be ordered: Yes PG Care Time/CCT Total # of Minutes Spent Total Time Spent with Patient: Total time spent is greater than 50% in coordination of care (as documented) at patient's floor/unit and/or counseling patient: Coding Level of Care Code 49888 Initial Inpt Care Lvl 2 Diagnoses Fever R50.9 Encephalopathy G93.40 TR (acute kidney injury) N17.9 Non-small cell cancer of left lung C34.92 Meningioma D32.9 Hypothyroidism E03.9 Chronic obstructive pulmonary disease J44.9 Depression with anxiety F41.8
--- NOTE | 2021-04-11 12:55 | Hospitalist Progress Note ---
Date of Service April 11, 2021 Assessment & Plan (1) Fever: Plan: Fever of unknown origin,? UTI versus chemotherapy reaction - No clear pulmonary, urinary, abd source. No ab pain. Cough at baseline. UA contaminated appearing but not overtly infected appearing, UC pending. Blood cultures negative after 24 hours. Continue meropenem pending full BC results. - Patient does have blanching erythematous macules on her knees bilaterally without purulence, skin compromise, tenderness which does not appear cellulitic. No other rash appreciated on skin exam. - Oncologist recommending MRI brain w/wo contrast - If not chemotherapy induced may need to consider LP although side effect profile appears to fit. (2) Encephalopathy: Plan: Encephalopathy, suspected metabolic CThead without acute abnormalities. Stable known meningoma without evidence of mass effect/edema. Suspect due to infection/febrile reaction Improved following fluids/Tylenol, not yet at baseline No significant improvement overnight - MRI brain w/wo contrast as above (3) TR (acute kidney injury): Plan: Hydration as above BMP daily Acutely elevated from baseline of normal to 1.37 - Received IVF in ER. Continue ant NSS+KCl overnight 100cc/hr (4) Non-small cell cancer of left lung: Plan: Lung adenocarcinoma status post SBRT, biopsy-proven mets on left rib, Last oncology note 03/18. Proceeding chemoimmunotherapy, osimertinib 80 mg at home Chemotherapy temporarily held in the setting of fever (5) Meningioma: Plan: Meningioma - On CT, stable as above - s/p G KRS 2018 - Low suspicion for contribution to acute presentation (6) Hypothyroidism: Plan: Continue Synthroid 112 mcg daily TSH Feb WNL (7) Chronic obstructive pulmonary disease: Plan: Albuterol as needed No wheezing, no new oxygen requirement Follow clinically (8) Depression with anxiety: Plan: Stable, at baseline Continue escitalopram 20 mg daily Plan: Prophylaxis: SCDs, heparin in the setting of TR Diet: Regular Disposition: Medical with telemetry CODE STATUS: DNR/DNI Admission and Anticipated Discharge Date Admission Date: April 10, 2021 Subjective Patient still having significant chills and confusion. No back pain. No new cough. No areas of cellulitis. No abdominal pain, diarrhea, urinary symptoms or new respiratory symptoms. After coming out of the room the patient started having chest pain, worse on palpation and inspiration, severity 5/10, no radiation, no associated symptoms (see was coughing right before this). Discussed with her oncologist (Dr Alvarado) who does not feel this is her Tagrisso induced.. She started Tagrisso 2.5 weeks ago. Never been on this before. She reports having similar side effects to chemotherapy in January however this was with carboplatin pemetrexed and Kaytruda. Review of Systems Review of Systems: All systems reviewed & are unremarkable except as noted in Subjective Physical Exam Constitutional: WD/WN, vitals as above + acute distress (chills) Eyes: PERRL, conjunctivae normal, anicteric sclerae ENMT: Mouth: + dry oral mucous membranes Neck: trachea midline, no thyromegaly Respiratory: normal respiratory effort, lungs clear to auscultation Cardiovascular: RRR, no murmur, no edema Gastrointestinal (Abdomen): Inspection/Auscultation: normal bowel sounds; abdomen not distended Percussion/Palpation: abdomen soft; abdomen nontender, no guarding and abdomen not rigid Musculoskeletal: no cyanosis or clubbing, extremities motor strength 5/5 Spine: no cervical spinal tenderness, no thoracic spinal tenderness, no lumbar spinal tenderness and no paraspinal tenderness Skin: no rashes, warm and dry (no areas of cellulitis) Neurologic: moves all extremities, awake and + confused; no focal motor deficits Psychiatric: A+Ox3, euthymic affect Results & Data Results & Data ([facility]) Vital Signs (Past 12 Hours) Vital Signs Temp Pulse Resp BP Pulse Ox 04/11/21 09:34 86 18 136/78 95 04/11/21 08:08 37.4 C 04/11/21 06:56 37.6 C H 04/11/21 05:27 81 20 126/63 92 04/11/21 01:28 36.4 C L 88 22 132/75 94 PG Care Time/CCT Total # of Minutes Spent Total Time Spent with Patient: Total time spent is greater than 50% in coordination of care (as documented) at patient's floor/unit and/or counseling patient: Coding Level of Care Code 90057 Subseq Hosp Care Lvl 3 Diagnoses Fever R50.9 Encephalopathy G93.40 TR (acute kidney injury) N17.9 Non-small cell cancer of left lung C34.92 Meningioma D32.9 Hypothyroidism E03.9 Chronic obstructive pulmonary disease J44.9 Depression with anxiety F41.8
--- NOTE | 2021-04-11 14:33 | XCELERA ---
[id number]
[2021-04-11 14:35] LABS: Troponin I 0.03 ng/ml (0-0.04)
[2021-04-11 14:40] LABS: C Reactive Protein 4.01 mg/dl (0-0.5)
[2021-04-11] MEDS: MoRPHine SULFATE 2 MG/ML CARP IV PRN (14:52)
--- NOTE | 2021-04-11 14:57 | Electrocardiogram Report ---
Test Reason : Blood Pressure : / mmHG Vent. Rate : 072 BPM Atrial Rate : 072 BPM P-R Int : 140 ms QRS Dur : 082 ms QT Int : 418 ms P-R-T Axes : 074 -47 041 degrees QTc Int : 457 ms Normal sinus rhythm Left anterior fascicular block Poor R wave progression, consider anterior [place] vs. lead placement vs. LVH Abnormal ECG When compared with ECG of 10-APR-2021 14:19, No significant change Confirmed by Mann Redding ([id number] on 04/11/2021 2:57:15 PM Referred By: REFERRED SELF Confirmed By:Mann Redding
[2021-04-11 16:04] LABS: Fibrinogen 405 mg/dl (184-400); INR 1.1 (0.9-1.1); Partial Thromboplastin Ratio 1.2; Partial Thromboplastin Time 32.6 Seconds (21.0-31.0); Prothrombin Time 10.8 Seconds (9.0-12.0)
[2021-04-11 16:06] LABS: D Dimer 3430 ug/L FEU (0-500)
[2021-04-12] MEDS: HEPARIN SOD 5,000 UNIT/0.5 ML VIAL SQ SCH ×2 (02:02→08:42)
[2021-04-12] MEDS: MEROPENEM 500 MG in SYRINGE 0 ML IV SCH ×3 (02:03→17:18)
[2021-04-12] MEDS: ACETAMINOPHEN 325 MG TAB PO PRN ×3 (04:49→20:39)
[2021-04-12 06:36] LABS: Basophils # (auto) 0.01 K/uL (0-0.2); Basophils % (auto) 0.6 %; Hematocrit (blood only) 33.7 % (37-47); Hemoglobin 10.9 g/dL (12.0-16.0); Lymphocytes # (auto) 0.24 K/uL (1.2-3.4); Lymphocytes % (auto) 14.1 %; Mean Corpuscular Hemoglobin 26.5 pg (25-34); Mean Corpuscular Hgb Conc 32.3 g/dL (32-36); Mean Platelet Volume 10.4 fL (7.4-10.4); Monocytes % (auto) 5.9 %; Neutrophils # (auto) 1.35 K/uL (1.4-6.5); Neutrophils % (auto) 79.4 %; Platelet Count 113 K/uL (130-400); RDW Coefficient of Variation 15.2 % (11.5-14.5); RDW Standard Deviation 45.8 fL (36.4-46.3); Red Blood Count 4.11 M/uL (4.2-5.4)
[2021-04-12] MEDS: LEVOTHYROXINE SODIUM 112 MCG TABLET PO SCH (06:41)
[2021-04-12 06:58] LABS: BUN Creatinine Ratio 14.4 (10-20); Calcium 8.6 mg/dl (8.5-10.1); Creatinine Clr Calc Pharmacy 53.9 ml/min; Potassium 4.1 mmol/L (3.5-5.1)
[2021-04-12] MEDS: ESCITALOPRAM OXALATE 20 MG TAB PO SCH (08:41)
[2021-04-12] MEDS: MONTELUKAST SODIUM 10 MG TABLET PO SCH (08:42)
[2021-04-12] MEDS: FOLIC ACID 1 MG TAB PO SCH (08:42)
[2021-04-12] MEDS ORDERED: Flu Vaccine-High Dose (Fluzone-HD) PF 65+ 0.7mL SYR IM ONE (09:00)
[2021-04-12] MEDS ORDERED: GADOBUTROL 65ML VIAL IV ONE (12:44)
[2021-04-12] MEDS: NSS + 20MEQ KCL 20 MEQ/1,000 ML BAG IV SCH ×3 (13:02→23:37)
--- NOTE | 2021-04-12 13:35 | Hospitalist Progress Note ---
Date of Service April 12, 2021 Assessment & Plan (1) Fever: Plan: Fever of unknown origin,? UTI versus chemotherapy reaction - No clear pulmonary, urinary, abd source. No ab pain. Cough at baseline. UA contaminated appearing but not overtly infected appearing, UC pending. Blood cultures negative after 24 hours. Continue meropenem pending full BC results. - TTE unremarkable and serial troponins negative for chest pain - Elevated D-dimer in the setting of cancer nonspecific for pulmonary embolus, no tachycardia or hypoxia suggestive of this. - Patient does have blanching erythematous macules on her knees bilaterally without purulence, skin compromise, tenderness which does not appear cellulitic. No other rash appreciated on skin exam. - Oncologist recommending MRI brain w/wo contrast -still pending due to delirium last night - Patient agreeable to lumbar puncture if MRI brain negative. (2) Encephalopathy: Plan: Encephalopathy, suspected metabolic CThead without acute abnormalities. Stable known meningoma without evidence of mass effect/edema. Suspect due to infection/febrile reaction Improved following fluids/Tylenol, not yet at baseline No significant improvement overnight - MRI brain w/wo contrast as above (3) TR (acute kidney injury): Plan: Hydration as above BMP daily Acutely elevated from baseline of normal to 1.37 - Received IVF in ER. Continue ant NSS+KCl overnight 100cc/hr (4) Non-small cell cancer of left lung: Plan: Lung adenocarcinoma status post SBRT, biopsy-proven mets on left rib, Last oncology note 03/18. Proceeding chemoimmunotherapy, osimertinib 80 mg at home Chemotherapy temporarily held in the setting of fever (5) Meningioma: Plan: Meningioma - On CT, stable as above - s/p G KRS 2018 - Low suspicion for contribution to acute presentation (6) Hypothyroidism: Plan: Continue Synthroid 112 mcg daily TSH Feb WNL (7) Chronic obstructive pulmonary disease: Plan: Albuterol as needed No wheezing, no new oxygen requirement Follow clinically (8) Depression with anxiety: Plan: Stable, at baseline Continue escitalopram 20 mg daily Plan: Prophylaxis: SCDs, hold heparin in case she needs a lumbar puncture Diet: Regular Disposition: Medical with telemetry CODE STATUS: DNR/DNI Admission and Anticipated Discharge Date Admission Date: April 10, 2021 Subjective Ongoing confusion but mildly improved today and more alert. She denies mild shortness of breath, no chest pain, neck pain, abdominal pain, diarrhea, worsening cough. Hearing her son in the corridor when he is not here. Alert and orientated x3. Ongoing chills is her main symptom. Review of Systems Review of Systems: All systems reviewed & are unremarkable except as noted in Subjective Physical Exam Constitutional: WD/WN, vitals as above + acute distress (chills) Eyes: PERRL, conjunctivae normal, anicteric sclerae ENMT: Mouth: oral mucous membranes not dry Neck: trachea midline, no thyromegaly Respiratory: normal respiratory effort, lungs clear to auscultation Cardiovascular: RRR, no murmur, no edema Gastrointestinal (Abdomen): Inspection/Auscultation: normal bowel sounds; abdomen not distended Percussion/Palpation: abdomen soft; abdomen nontender, no guarding and abdomen not rigid Musculoskeletal: no cyanosis or clubbing, extremities motor strength 5/5 Spine: no cervical spinal tenderness, no thoracic spinal tenderness, no lumbar spinal tenderness and no paraspinal tenderness Skin: Blanching erythematous macular rash on bilateral lower extremities from knees to thighs appears to be improving. Neurologic: moves all extremities, awake and + confused; no focal motor deficits Psychiatric: A+Ox3, euthymic affect Results & Data Results & Data ([facility]) Vital Signs (Past 12 Hours) Vital Signs Temp Pulse Pulse Pulse Resp BP Pulse Ox 04/12/21 11:16 36.5 C 66 18 147/75 H 100 04/12/21 07:01 80 04/12/21 07:00 36.9 C 73 20 148/65 H 94 04/12/21 01:55 36.7 C 70 18 128/78 95 PG Care Time/CCT Total # of Minutes Spent Total Time Spent with Patient: Total time spent is greater than 50% in coordination of care (as documented) at patient's floor/unit and/or counseling patient: Coding Level of Care Code 98392 Subseq Hosp Care Lvl 2 Diagnoses Fever R50.9 Encephalopathy G93.40 TR (acute kidney injury) N17.9 Non-small cell cancer of left lung C34.92 Meningioma D32.9 Hypothyroidism E03.9 Chronic obstructive pulmonary disease J44.9 Depression with anxiety F41.8
--- NOTE | 2021-04-12 14:00 | Magnetic Resonance Report ---
MR brain wo/w con HISTORY: 75 years-old Female known ?metastatic disease follow-up study in a patient with history of meningioma. 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 Partially empty sella. Mildly m otion degraded exam. Midline structures are otherwise unremarkable. Degenerative changes of the image d cervical spine. There is no restricted diffusion to suggest acute or subacute infarct. No pathologic blooming artifac t. No acute intracranial hemorrhage, midline shift, abnormal extra axial collection, hydrocephalus or intra-axial mass. Avidly enhancing extra-axial dural based lesion adjacent to right frontal lobe on image 15 series 9 measures 1.3 x 0.9 x 1.0 cm, previously measured at 1.2 x 0.9 x 1.0 cm. No signific ant mass effect upon the adjacent brain parenchyma. No additional abnormal intra-axial or extra-axial enhancement. Mild involutional changes. Minimal T2/FLAIR hyperintense foci throughout the [place] suggest chronic microvascular ischemic disease. The cerebral venous sinuses and major arterial flow voids appear patent. Trace mastoid effusions. Par anasal sinuses are generally clear. The skull, orbits and soft tissues are otherwise unremarkable. 2. 3 cm left parietal osteoma. IMPRESSION: 1. Motion degraded exam without acute intracranial abnormality. No acute or subacute infarct. 2. 1.3 cm enhancing extra-axial dural based lesion adjacent to the right frontal lobe suggestive of a meningioma measures up to 1.3 cm. This is stable to slightly increased in size from the 01/28/2020 ex am. 3. 2.3 cm left parietal osteoma. ACT 112: Negative or not required by law. The above report was generated using voice recognition software. It may contain grammatical, syntax o r spelling errors. Electronically signed by: Kosta Paiz M.D. 04/12/2021 1:58 PM
[2021-04-12] MEDS: MoRPHine SULFATE 2 MG/ML CARP IV PRN (14:01)
--- NOTE | 2021-04-12 14:09 | Electrocardiogram Report ---
Test Reason : Blood Pressure : / mmHG Vent. Rate : 081 BPM Atrial Rate : 081 BPM P-R Int : 132 ms QRS Dur : 076 ms QT Int : 388 ms P-R-T Axes : 073 -46 045 degrees QTc Int : 450 ms Normal sinus rhythm Left axis deviation Abnormal ECG When compared with ECG of 11-APR-2021 13:22, Minimal criteria for Anteroseptal infarct are no longer Present Confirmed by Quincy Smith ([id number]) on 04/12/2021 2:08:55 PM Referred By: REFERRED SELF Confirmed By:Quincy Smith
[2021-04-12 16:07] LABS: Lyme Ab IgG w/WB Rflx Positive (Negative)
[2021-04-12 16:08] LABS: Lyme Ab IgM w/WB Rflx Equivocal (Negative)
[2021-04-12] MEDS ORDERED: OPTIRAY 320 125ml IV ONE (20:07)
--- NOTE | 2021-04-12 20:28 | CT Scan Report ---
CT angio chest PE protocol CLINICAL HISTORY: PE, shortness of breath, fever TECHNIQUE: Multidetector row helical CT of the chest was performed. Coronal and sagittal reformations were obtained. Coronal and sagittal MIPS were obtained from the axial data set and were submitted fo r review. Automated dose lowering techniques and/or adjustment according to patient size were utiliz ed for this exam. Comparison: Comparison is made to chest CT 06/13/2020 FINDINGS: Lungs and pleura: Diffuse centrilobular emphysema is seen most prominent in the upper lobes. There is a 2.6 cm nodule in the left upper lobe (series 3 image 95) and a 5 mm nodule in the right upper lobe (image 100). These are unchanged from prior exam. Heart and pericardium: Heart size is normal. No pericardial effusion. Vessels: The pulmonary trunk is enlarged measuring 35 mm. No pulmonary embolism is seen. Incidentally noted is narrowing of the right subclavian artery with resultant collateral formation. Mediastinum and glenis: Subcentimeter lymph nodes are seen. Chest wall and lower neck: Unremarkable. Abdomen: Unremarkable. Bones: Unremarkable. IMPRESSION: No evidence of pulmonary embolism. Stable nodules in the bilateral upper lobes. ACT 112: Negative or not required by law. Electronically signed by: Satnam Dangelo M.D. 04/12/2021 8:27 PM
[2021-04-12] MEDS ORDERED: diphenhydrAMINE 50 MG/ML VIAL IV PRN (20:53)
--- NOTE | 2021-04-12 20:53 | Communication Note ---
Date of Service: April 12, 2021 Night resident note Patient's CTA w/ PE protocol came back negative for PE or pneumonia. Per my discussion with patient's daytime hospitalist, I will order ceftriaxone to treat for presumed neuro lyme. Patient is noted to have an allergy to cephalosporins (hives) - I ordered benadryl prn and ask staff to have this on-hand if needed prior to starting ceftriaxone. Denys Thomas MD, PGY-2 Resident Activity Tracking Resident Involvement: Resident Care Provided and Category Development Manager Coverage Note Care Provided: Adult Hospital Medicine
[2021-04-12] MEDS: cefTRIAXone SODIUM 2,000 MG in DEXTROSE 5% 50 ML IV SCH (23:36)
[2021-04-13] MEDS: MoRPHine SULFATE 2 MG/ML CARP IV PRN (01:35)
[2021-04-13] MEDS: MEROPENEM 500 MG in SYRINGE 0 ML IV SCH (01:35)
[2021-04-13] MEDS: LEVOTHYROXINE SODIUM 112 MCG TABLET PO SCH (04:46)
[2021-04-13] MEDS: ACETAMINOPHEN 325 MG TAB PO PRN ×3 (04:46→22:33)
[2021-04-13 07:03] LABS: Hematocrit (blood only) 32.9 % (37-47); Hemoglobin 10.4 g/dL (12.0-16.0); Mean Corpuscular Hemoglobin 25.9 pg (25-34); Mean Corpuscular Hgb Conc 31.6 g/dL (32-36); Mean Platelet Volume 10.3 fL (7.4-10.4); Platelet Count 105 K/uL (130-400); RDW Coefficient of Variation 15.3 % (11.5-14.5); RDW Standard Deviation 46.1 fL (36.4-46.3); Red Blood Count 4.01 M/uL (4.2-5.4)
[2021-04-13] MEDS: ESCITALOPRAM OXALATE 20 MG TAB PO SCH (08:23)
[2021-04-13] MEDS: FOLIC ACID 1 MG TAB PO SCH (08:23)
[2021-04-13] MEDS: MONTELUKAST SODIUM 10 MG TABLET PO SCH (08:23)
[2021-04-13] MEDS: NSS + 20MEQ KCL 20 MEQ/1,000 ML BAG IV SCH ×2 (11:51→22:07)
[2021-04-13] MEDS: cefTRIAXone SODIUM 2,000 MG in DEXTROSE 5% 50 ML IV SCH (22:31)
[2021-04-14] MEDS: ACETAMINOPHEN 325 MG TAB PO PRN (03:46)
[2021-04-14] MEDS: LEVOTHYROXINE SODIUM 112 MCG TABLET PO SCH (05:25)
[2021-04-14 07:22] LABS: Hemoglobin 10.1 g/dL (12.0-16.0); Lymphocytes # (auto) 0.46 K/uL (1.2-3.4); Lymphocytes % (auto) 22.3 %; Mean Corpuscular Hemoglobin 25.7 pg (25-34); Mean Corpuscular Hgb Conc 31.6 g/dL (32-36); Mean Corpuscular Volume 81.4 fL (80-100); Mean Platelet Volume 10.4 fL (7.4-10.4); Monocytes # (auto) 0.06 K/uL (0.11-0.59); Monocytes % (auto) 2.9 %; Neutrophils # (auto) 1.54 K/uL (1.4-6.5); Neutrophils % (auto) 74.8 %; Platelet Count 114 K/uL (130-400); RDW Coefficient of Variation 15.5 % (11.5-14.5); RDW Standard Deviation 46.6 fL (36.4-46.3); Red Blood Count 3.93 M/uL (4.2-5.4); White Blood Count 2.06 K/uL (4.8-10.8)
[2021-04-14 07:46] LABS: BUN Creatinine Ratio 15.6 (10-20); C Reactive Protein 6.17 mg/dl (0-0.5); Calcium 8.7 mg/dl (8.5-10.1); Creatinine Clr Calc Pharmacy 53.6 ml/min
[2021-04-14] MEDS ORDERED: LORazepam 0.5 MG TAB PO PRN (07:54)
[2021-04-14] MEDS: FOLIC ACID 1 MG TAB PO SCH (08:18)
[2021-04-14] MEDS: ESCITALOPRAM OXALATE 20 MG TAB PO SCH (08:18)
[2021-04-14] MEDS: MONTELUKAST SODIUM 10 MG TABLET PO SCH (08:18)
[2021-04-14] MEDS: FENOFIBRIC ACID 45 MG PO SCH (08:19)
--- NOTE | 2021-04-14 08:54 | Hospitalist Progress Note ---
Date of Service April 13, 2021 Assessment & Plan (1) Fever: Plan: Fever of unknown origin,? Lyme versus chemotherapy reaction - No clear pulmonary, urinary, abd source. No ab pain. Cough at baseline. UA contaminated appearing but not overtly infected appearing, UC pending. Blood cultures negative after 48 hours -meropenem discontinued. - TTE unremarkable and serial troponins negative for chest pain - Elevated D-dimer in the setting of cancer nonspecific for pulmonary embolus, no tachycardia or hypoxia suggestive of this. - Patient does have blanching erythematous macules on her knees bilaterally without purulence, skin compromise, tenderness which does not appear cellulitic. No other rash appreciated on skin exam. - Oncologist recommending MRI brain w/wo contrast -no acute findings however she has a 2.3 cm left parietal osteoma and a 1.3 cm stable meningioma - Lyme IgM testing equivocal therefore started on ceftriaxone 2 g IV daily for possible EDUCATION ASSOCIATE Lyme disease - Lumbar puncture pending tomorrow (2) Encephalopathy: Plan: Encephalopathy, suspected metabolic CThead without acute abnormalities. Stable known meningoma without evidence of mass effect/edema. Suspect due to infection/febrile reaction Improved following fluids/Tylenol, not yet at baseline Significant improvement since admission however unknown whether this is due to antibiotics or the chemotherapy wearing off. (3) TR (acute kidney injury): Plan: Resolved. Discontinue IV fluids (4) Non-small cell cancer of left lung: Plan: Lung adenocarcinoma status post SBRT, biopsy-proven mets on left rib, Last oncology note 03/18. Proceeding chemoimmunotherapy, osimertinib 80 mg at home Chemotherapy temporarily held in the setting of fever (5) Meningioma: Plan: Meningioma - On CT, stable as above - s/p G KRS 2018 - Low suspicion for contribution to acute presentation (6) Hypothyroidism: Plan: Continue Synthroid 112 mcg daily TSH Feb WNL (7) Chronic obstructive pulmonary disease: Plan: Albuterol as needed No wheezing, no new oxygen requirement Follow clinically (8) Depression with anxiety: Plan: Stable, at baseline Continue escitalopram 20 mg daily Plan: Prophylaxis: SCDs, hold heparin for lumbar puncture Diet: Regular Disposition: Medical with telemetry CODE STATUS: DNR/DNI Admission and Anticipated Discharge Date Admission Date: April 10, 2021 Subjective Confusion continues to improve. No further fever today. Occasional chills. Today she is complaining of back pain in her lumbar spine area. This is new this admission and was not present prior to admission. Worse on palpation. No radiation down her legs. No urine or bowel incontinence. No perianal numbness. No neck pain or headache. Tried to perform lumbar puncture today however she was very anxious about this and could not get through the procedure. We will try again tomorrow with some Ativan. Review of Systems Review of Systems: All systems reviewed & are unremarkable except as noted in Subjective Physical Exam Constitutional: WD/WN, vitals as above no acute distress Eyes: + anicteric sclerae; normal pupil size ENMT: Mouth: oral mucous membranes not dry Neck: trachea midline, no thyromegaly Respiratory: normal respiratory effort, lungs clear to auscultation Cardiovascular: RRR, no murmur, no edema Gastrointestinal (Abdomen): Inspection/Auscultation: normal bowel sounds; abdomen not distended Percussion/Palpation: abdomen soft; abdomen nontender, no guarding and abdomen not rigid Musculoskeletal: no cyanosis or clubbing, extremities motor strength 5/5 S pine: + paraspinal tenderness (Bilateral lumbar); no cervical spinal tenderness, no thoracic spinal tenderness and no lumbar spinal tenderness Skin: Blanching erythematous macular rash on bilateral lower extremities from knees to thighs appears to be improving -appears today more like mottling Neurologic: moves all extremities and awake; no focal motor deficits and not confused Psychiatric: A+Ox3, euthymic affect Results & Data Results & Data ([facility]) Vital Signs (Past 12 Hours) Vital Signs Temp Pulse Pulse Pulse Resp BP Pulse Ox 04/14/21 08:22 36.8 C 73 19 128/66 93 04/14/21 07:45 84 16 160/80 H 95 04/14/21 02:40 36.7 C 83 18 144/77 H 94 04/13/21 23:42 73 04/13/21 22:07 36.7 C 75 18 133/70 92 PG Care Time/CCT Total # of Minutes Spent Total Time Spent with Patient: Total time spent is greater than 50% in coordination of care (as documented) at patient's floor/unit and/or counseling patient: Coding Level of Care Code 44316 Subseq Hosp Care Lvl 2 Diagnoses Fever R50.9 Encephalopathy G93.40 TR (acute kidney injury) N17.9 Non-small cell cancer of left lung C34.92 Meningioma D32.9 Hypothyroidism E03.9 Chronic obstructive pulmonary disease J44.9 Depression with anxiety F41.8
[2021-04-14 14:09] LABS: CSF Count Tube # 3
[2021-04-14 14:10] LABS: Appearance CSF Clear; CSF Xanthrochromic No xanthochromia; Color CSF Colorless; Red Blood Cell CSF (A) 0 /uL (0-); Red Blood Cell CSF (B) 0 /uL (0-); White Blood Cell CSF (B) 14 /uL (0-5)
[2021-04-14 14:12] LABS: White Blood Cell CSF (A) 17 /uL (0-5)
[2021-04-14 14:19] LABS: Mononuclear WBC CSF 79.4 %; Polynuclear WBC CSF 20.6 %
[2021-04-14 14:23] LABS: CSF Glucose 50 mg/dl (40-70)
[2021-04-14] MEDS ORDERED: VANCOMYCIN CONSULT ACTIVE PRN (14:23)
[2021-04-14 14:28] LABS: CSF Chemistry Tube # 1
--- NOTE | 2021-04-14 14:52 | Fluoroscopy Report ---
FLUOROSCOPIC GUIDED LUMBAR PUNCTURE CLINICAL HISTORY: Fever of unknown origin. PROCEDURE: The risks, benefits, and alternatives to the procedure is discussed with the patient who v oiced understanding. Written informed consent was obtained. The patient was placed prone on the fluor oscopy table. The lower back was prepped and draped in the usual sterile fashion. 1% lidocaine was us ed for local anesthesia. A 20-gauge spinal needle was inserted into the L3-L4 interlaminar space, and approximately 10 cc of clear colorless cerebrospinal fluid was removed. 2 spot images were saved. Th e patient tolerated the procedure well. There were no immediate complications. The patient was then r eturned to the medical floor for further observation. Fluoroscopy time: 0.3 minutes IMPRESSION: Fluoroscopic guided lumbar puncture with removal of approximately 10 cc of cerebrospinal fluid. There were no immediate complications. ACT 112: Negative or not required by law. Electronically signed by: Freddy Collado M.D. 04/14/2021 2:51 PM
[2021-04-14] MEDS ORDERED: VANCOMYCIN HCL 1,500 MG in SODIUM CHLORIDE 0.9% 500 ML IV ONE (15:00)
--- NOTE | 2021-04-14 15:15 | Pharmacy Report ---
Pharmacy [facility] Short Note - Date of Service April 14, 2021 - Assessment & Plan Assessment 75 year old F who presented to [place] on 04/10/21 with 2-3 days of fever, weakness, and confusion. History of stage IV metastatic lung cancer currently on oral chemotherapy. Initially started on meropenem and then changed to ceftriaxone for treatment of BOILERS INSPECTOR lyme disease. Vancomycin added on 04/14 Pertinent microbiologic data includes: lyme antibody screen positive, western blot pending CSF culture pending Plan Vancomycin * Loading dose: 1500 mg (20 mg/kg) IV x 1 * Maintenance: 1000 mg (13.8 mg/kg) IV every 12 hours * Regimen is predicted to achieve AUC/JORDON > 400 within the first 24 hours of therapy. * Aggressive regimen used based on presumed BOILERS INSPECTOR source - may need to back off at time of first trough level * Trough level has been ordered for 04/16/21 @ 0530 Pharmacy will continue to follow and will adjust dose/frequency as necessary. Thank you.
[2021-04-14 15:34] LABS: Cryptococcus neoformans/ga PCR Not Detected (NotDetected); Cytomegalovirus PCR Not Detected (NotDetected); Enterovirus PCR Not Detected (NotDetected); Escherichia coli K1 PCR Not Detected (NotDetected); Haemophilius influenzae PCR Not Detected (NotDetected); Herpes Simplex Virus 1 PCR Not Detected (NotDetected); Herpes Simplex Virus 2 PCR Not Detected (NotDetected); Human Herpes Virus 6 PCR Not Detected (NotDetected); Human Parechovirus PCR Not Detected (NotDetected); Listeria monocytogenes PCR Not Detected (NotDetected); Neisseria meningitidis PCR Not Detected (NotDetected); Streptococcus agalactiae PCR Not Detected (NotDetected); Streptococcus pneumoniae PCR Not Detected (NotDetected); Varicella Zoster Virus PCR Not Detected (NotDetected)
[2021-04-14] MEDS: AMPICILLIN 2,000 MG in SODIUM CHLOR 0.9% AD-VAN 100 ML IV SCH ×3 (17:15→23:57)
[2021-04-14] MEDS: dexAMETHasone 10 MG in SYRINGE 0 ML IV SCH ×2 (17:15→21:50)
[2021-04-14] MEDS: CEFEPIME 2,000 MG in SYRINGE 0 ML IV SCH (18:17)
--- NOTE | 2021-04-14 22:31 | Hospitalist Progress Note ---
Date of Service April 14, 2021 Assessment & Plan (1) Fever: Plan: Fever of unknown origin,? Lyme, meningitis versus chemotherapy reaction - No clear pulmonary, urinary, abd source. No ab pain. Cough at baseline. UA contaminated appearing but not overtly infected appearing, UC pending. Blood cultures negative after 48 hours -meropenem discontinued. - TTE unremarkable and serial troponins negative for chest pain - Elevated D-dimer in the setting of cancer nonspecific for pulmonary embolus, no tachycardia or hypoxia suggestive of this. - Patient does have blanching erythematous macules on her knees bilaterally without purulence, skin compromise, tenderness which does not appear cellulitic. No other rash appreciated on skin exam. - Oncologist recommending MRI brain w/wo contrast -no acute findings however she has a 2.3 cm left parietal osteoma and a 1.3 cm stable meningioma - Lyme IgM testing equivocal therefore started on ceftriaxone 2 g IV daily for possible ANIMAL TAXONOMIST Lyme disease - now switched to cefepime due to WBC in CSF - Lumbar puncture with WBC 17 and protein 71.9 in CSF - gram stain negative, PCR pending. Start dexamethasone, vancomycin, ampicillin and cefepime pending cultures and PCR. (2) Encephalopathy: Plan: Encephalopathy, suspected metabolic CThead without acute abnormalities. Stable known meningoma without evidence of mass effect/edema. Suspect due to infection/febrile reaction Improved following fluids/Tylenol, not yet at baseline Significant improvement since admission however unknown whether this is due to antibiotics or the chemotherapy wearing off. (3) TR (acute kidney injury): Plan: Resolved. Discontinue IV fluids (4) Non-small cell cancer of left lung: Plan: Lung adenocarcinoma status post SBRT, biopsy-proven mets on left rib, Last oncology note 03/18. Proceeding chemoimmunotherapy, osimertinib 80 mg at h ome Chemotherapy temporarily held in the setting of fever (5) Meningioma: Plan: Meningioma - On CT, stable as above - s/p G KRS 2018 - Low suspicion for contribution to acute presentation (6) Hypothyroidism: Plan: Continue Synthroid 112 mcg daily TSH Feb WNL (7) Chronic obstructive pulmonary disease: Plan: Albuterol as needed No wheezing, no new oxygen requirement Follow clinically (8) Depression with anxiety: Plan: Stable, at baseline Continue escitalopram 20 mg daily Plan: Prophylaxis: SCDs, hold heparin for lumbar puncture Diet: Regular Disposition: Medical with telemetry CODE STATUS: DNR/DNI Admission and Anticipated Discharge Date Admission Date: April 10, 2021 Subjective Continued mild improvement in confusion. No fever in 24 hours and chills have much improved. Updated her son at bedside. She was able to do LP today with Ativan - patient seen following LP therefore Ativan may be making her confused. Discussed penicillin allergy and she keeps talking about her polio flaring up. Per son she was just told as a child she was allergic to penicillin by her parents. No neck pain or stiffness. Review of Systems Review of Systems: All systems reviewed & are unremarkable except as noted in Subjective Physical Exam Constitutional: WD/WN, vitals as above no acute distress Eyes: PERRL, conjunctivae normal, anicteric sclerae ENMT: Mouth: oral mucous membranes not dry Neck: trachea midline, no thyromegaly Respiratory: normal respiratory effort, lungs clear to auscultation Cardiovascular: RRR, no murmur, no edema Gastrointestinal (Abdomen): Inspection/Auscultation: normal bowel sounds; abdomen not distended Percussion/Palpation: abdomen soft; abdomen nontender, no guarding and abdomen not rigid Musculoskeletal: no cyanosis or clubbing, extremities motor strength 5/5 Spine: + paraspinal tenderness (Bilateral lumbar); no cervical spinal tenderness, no thoracic spinal tenderness and no lumbar spinal tenderness Skin: Blanching erythematous macular rash on bilateral lower extremities from knees to thighs appears to be improving -appears today more like mottling Neurologic: moves all extremities and awake; no focal motor deficits and not confused Psychiatric: A+Ox3, euthymic affect Results & Data Results & Data ([facility]) Vital Signs (Past 12 Hours) Vital Signs Temp Pulse Pulse Pulse Resp BP Pulse Ox 04/14/21 19:25 37.1 C 87 18 166/71 H 91 04/14/21 15:08 83 04/14/21 11:11 36.6 C 66 14 146/68 H 96 PG Care Time/CCT Total # of Minutes Spent Total Time Spent with Patient: Total time spent is greater than 50% in coordination of care (as documented) at patient's floor/unit and/or counseling patient: Coding Level of Care Code 25296 Subseq Hosp Care Lvl 2 Diagnoses Fever R50.9 Encephalopathy G93.40 TR (acute kidney injury) N17.9 Non-small cell cancer of left lung C34.92 Meningioma D32.9 Hypothyroidism E03.9 Chronic obstructive pulmonary disease J44.9 Depression with anxiety F41.8
[2021-04-15] MEDS: AMPICILLIN 2,000 MG in SODIUM CHLOR 0.9% AD-VAN 100 ML IV SCH ×5 (04:20→20:17)
[2021-04-15] MEDS: CEFEPIME 2,000 MG in SYRINGE 0 ML IV SCH ×2 (04:20→16:34)
[2021-04-15] MEDS: LEVOTHYROXINE SODIUM 112 MCG TABLET PO SCH (04:20)
[2021-04-15] MEDS: dexAMETHasone 10 MG in SYRINGE 0 ML IV SCH (04:20)
[2021-04-15] MEDS: VANCOMYCIN HCL 1,000 MG in SODIUM CHLORIDE 0.9% 250 ML IV SCH ×2 (05:00→17:17)
[2021-04-15 07:02] LABS: Hematocrit (blood only) 36.4 % (37-47); Hemoglobin 11.7 g/dL (12.0-16.0); Lymphocytes # (auto) 0.49 K/uL (1.2-3.4); Mean Corpuscular Hemoglobin 25.8 pg (25-34); Mean Corpuscular Hgb Conc 32.1 g/dL (32-36); Mean Corpuscular Volume 80.2 fL (80-100); Mean Platelet Volume 10.8 fL (7.4-10.4); Monocytes # (auto) 0.03 K/uL (0.11-0.59); Monocytes % (auto) 1.5 %; Neutrophils # (auto) 1.44 K/uL (1.4-6.5); Neutrophils % (auto) 73.5 %; Platelet Count 151 K/uL (130-400); RDW Coefficient of Variation 15.5 % (11.5-14.5); RDW Standard Deviation 45.4 fL (36.4-46.3); Red Blood Count 4.54 M/uL (4.2-5.4); White Blood Count 1.96 K/uL (4.8-10.8)
[2021-04-15 07:28] LABS: Albumin Level 3.3 gm/dl (3.4-5.0); BUN Creatinine Ratio 19.8 (10-20); Bilirubin,Total 0.4 mg/dl (0.2-1.0); Calcium 8.9 mg/dl (8.5-10.1); Creatinine Clr Calc Pharmacy 59.1 ml/min; Creatinine Clr Calc Pharmacy 59.9 ml/min; Est GFR (African American) 81.7 ml/min; Est GFR (African American) 82.9 ml/min; Est GFR (Non-African American) 70.5 ml/min; Est GFR (Non-African American) 71.5 ml/min; Globulin 3.2 gm/dl (2.5-4.0); Magnesium 2.1 mg/dl (1.7-2.4); Total Protein 6.5 gm/dl (6.0-8.3)
--- NOTE | 2021-04-15 07:51 | Communication Note ---
Date of Service: April 15, 2021 Informed by nursing of 12 beat run of [facility]. Checking electrolytes w/ AM labs.
[2021-04-15] MEDS: FOLIC ACID 1 MG TAB PO SCH (09:32)
[2021-04-15] MEDS: MONTELUKAST SODIUM 10 MG TABLET PO SCH (09:32)
[2021-04-15] MEDS: ESCITALOPRAM OXALATE 20 MG TAB PO SCH (09:32)
[2021-04-15] MEDS: FENOFIBRIC ACID 45 MG PO SCH (09:32)
[2021-04-16] MEDS: CEFEPIME 2,000 MG in SYRINGE 0 ML IV SCH ×2 (00:08→07:29)
[2021-04-16] MEDS: AMPICILLIN 2,000 MG in SODIUM CHLOR 0.9% AD-VAN 100 ML IV SCH ×3 (00:08→07:29)
[2021-04-16] MEDS ORDERED: VANCOMYCIN TROUGH ONE (05:30)
[2021-04-16] MEDS: LEVOTHYROXINE SODIUM 112 MCG TABLET PO SCH (05:53)
[2021-04-16] MEDS: VANCOMYCIN HCL 1,000 MG in SODIUM CHLORIDE 0.9% 250 ML IV SCH (05:53)
[2021-04-16 06:21] LABS: Hematocrit (blood only) 32.5 % (37-47); Hemoglobin 10.4 g/dL (12.0-16.0); Mean Corpuscular Hemoglobin 25.7 pg (25-34); Mean Corpuscular Volume 80.2 fL (80-100); Mean Platelet Volume 10.2 fL (7.4-10.4); Platelet Count 177 K/uL (130-400); RDW Coefficient of Variation 15.3 % (11.5-14.5); RDW Standard Deviation 44.9 fL (36.4-46.3); Red Blood Count 4.05 M/uL (4.2-5.4); White Blood Count 4.49 K/uL (4.8-10.8)
[2021-04-16 06:41] LABS: Creatinine Clr Calc Pharmacy 56.8 ml/min; Est GFR (African American) 77.1 ml/min; Est GFR (Non-African American) 66.6 ml/min
[2021-04-16] MEDS: FENOFIBRIC ACID 45 MG PO SCH (08:35)
--- NOTE | 2021-04-16 08:35 | Hospitalist Progress Note ---
Date of Service April 15, 2021 Assessment & Plan (1) Acute Lyme disease with neurological disease: Plan: SUSPECTED. Extensive w/u for her fever has been negative except for her lyme screen (IgG+, IgM equivacol). LP with 17 wbcs concerning for meningitis - either viral vs tick-borne (bacterial possible but typically wbcs are much high, BioFire panel is negative, gram stain neg; culture also negative). If the Western Blot is indeed positive for Lyme, and if CSF Lyme returns +, then she has had ENAMEL BUFFER Lyme disease. Fortunately she is improving on global level - fevers are gone, mentation is improving, and she overall feels better. If CSF culture is negative tomorrow d/c ampicillin and vanco. Change cefepime to rocephin at that time - cont 2 grams IV daily. ID consultation on Saturday while awaiting Lyme confirmation. (2) Fever: Plan: ENAMEL BUFFER Lyme vs viral meningitis versus chemotherapy reaction vs other. I do not suspect her chemo caused her presentation. If lyme w/u is negative this could be a viral syndrome with viral meningitis. Nikolai cheeks, lacy erythematous rash on legs, 17 wbcs in CSF - again could be viral (parvo??). Chest imaging neg for pneumonia. Urine culture negative. Blood cx's negative. MRI brain without signs of encephalitis. 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 Continue IV abx for suspected ENAMEL BUFFER Lyme disease. Since we are not dealing with strep or meningicoccal meningitis will stop the dexamethasone. see #1 above re: other antibiotics. (3) Encephalopathy: Plan: Metabolic Encephalopathy - IMPROVED. MRI brain with stable findings. Confusion 2nd to #1/#2. Cont supportive care. (4) TR (acute kidney injury): Plan: Resolved. (5) Non-small cell cancer of left lung: Plan: Lung adenocarcinoma status post SBRT, biopsy-proven mets on left rib, etc. Was taking Targrisso (osimertinib) 80 mg daily pre-admission. On hold due to #1, #2. (6) Meningioma: Plan: stable, likely not contributing to presentation (7) Hypothyroidism: Plan: Continue Synthroid 112 mcg daily TSH Feb 2021 WNL (8) Chronic obstructive pulmonary disease: Plan: stable, no flare (9) Depression with anxiety: Plan: Stable - cont escitalopram 20 mg daily (10) Leukopenia: Plan: 2nd to tick-borne disease? 2nd to Tagrisso? cbc in am Plan: can likely resume heparin tomorrow (has been >24 hours) daughter extensively updated at bedside today send CSF fluid for path given her NSCLC but doubt leptomeningeal involvement from cancer PT eval completed yesterday - cleared for d/c home once medically stable Admission and Anticipated Discharge Date Admission Date: April 10, 2021 Subjective overnight - 12 beat run of NSVT - no symptoms during the visit the patient was sitting at side of bed daughter was present both the patient and her daughter feel she is improving mental status is improved; not so confused - she stated "I thought I was getting dementia" she has had no further fever no chills appetite is chronically poor, but has been worse with this illness; maybe scantly better today no headache; no headache with standing either no myalgias rash on legs - thighs - no itching [place] of time working in her garden did have Lyme disease several years ago Review of Systems Review of Systems: gen - no fevers or chills pulm - no cough/dyspnea cv - no chest pain GI - no N/V; mild diarrhea (1x today only) Physical Exam Physical Exam: gen - nontoxic, looks good, NAD; slight confusion mouth - MMM, no thrush neck - no JVD heart - RRR, s1 s2 lungs - cta b/l abd - soft NT ND BS+; no HSM ext - no edema, pulses 2+ b/l skin - mild "nikolai" cheeks b/l; mild erythematous macular rash on thighs - faint, not raised, no scale, no urticaria Results & Data Results & Data ([facility]) Vital Signs (Past 12 Hours) Vital Signs Temp Pulse Pulse Pulse Resp BP Pulse Ox 04/16/21 07:23 36.7 C 75 20 152/79 H 97 04/16/21 07:20 66 04/16/21 02:58 36.8 C 68 16 135/68 93 04/15/21 22:39 36.6 C 74 18 117/64 95 04/15/21 22:20 74 Laboratory Results CSF cx neg blood cx's neg CSF biofire negative completely PG Care Time/CCT Total # of Minutes Spent Total Time Spent with Patient: Total time spent is greater than 50% in coordination of care (as documented) at patient's floor/unit and/or counseling patient: Coding Level of Care Code 47463 Subseq Hosp Care Lvl 3 Diagnoses Fever R50.9 Encephalopathy G93.40 TR (acute kidney injury) N17.9 Non-small cell cancer of left lung C34.92 Meningioma D32.9 Hypothyroidism E03.9 Chronic obstructive pulmonary disease J44.9 Depression with anxiety F41.8 Leukopenia D70.1; T45.1X5A Leukopenia type: neutropenia Neutropenia type: secondary to cancer chemotherapy Acute Lyme disease with neurological disease A69.22 (1) Leukopenia Leukopenia type: neutropenia Neutropenia type: secondary to cancer chemotherapy Qualified Code(s): D70.1 - Agranulocytosis secondary to cancer chemotherapy; T45.1X5A - Adverse effect of antineoplastic and immunosuppressive drugs, initial encounter
[2021-04-16] MEDS: FOLIC ACID 1 MG TAB PO SCH (08:36)
[2021-04-16] MEDS: ESCITALOPRAM OXALATE 20 MG TAB PO SCH (08:36)
[2021-04-16] MEDS: MONTELUKAST SODIUM 10 MG TABLET PO SCH (08:36)
[2021-04-16] MEDS: ADVANCED PROBIOTIC 1250 MG CAPSULE PO SCH (08:39)
[2021-04-16] MEDS: cefTRIAXone SODIUM 2,000 MG in DEXTROSE 5% 50 ML IV SCH (13:20)
[2021-04-16] MEDS ORDERED: FEXOFENADINE 60 MG TAB PO ONE (15:30)
--- NOTE | 2021-04-16 18:50 | Hospitalist Progress Note ---
Date of Service April 16, 2021 Assessment & Plan (1) Acute Lyme disease with neurological disease: Plan: SUSPECTED. Extensive w/u for her fever has been negative except for her lyme screen (IgG+, IgM equivacol). LP with 17 wbcs concerning for meningitis - either viral vs tick-borne (bacterial possible but typically wbcs are much high, BioFire panel is negative, gram stain neg; culture also negative). If the Western Blot is indeed positive for Lyme, and if CSF Lyme returns +, then she has had [employer]GER TAILER Lyme disease. As CSF culture is negative dc ampicillin and vanco. Also change cefepime to rocephin 2 grams IV daily - rocephin will cover the possible Lyme. Likely ID consultation on Saturday while awaiting Lyme confirmation. (2) Fever: Plan: [employer] Lyme vs viral meningitis versus chemotherapy reaction vs other. I do not suspect her chemo caused her presentation. If lyme w/u is negative this could be a viral syndrome with viral meningitis. [place] cheeks, lacy erythematous rash on legs, 17 wbcs in CSF - again could be viral (parvo, mono, CMV??). Chest imaging neg for pneumonia. Urine culture negative. Blood cx's negative. MRI brain without signs of encephalitis. 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 Continue IV abx for suspected [employer] Lyme disease. Since we are not dealing with strep or meningicoccal meningitis dexamethasone was stopped. see #1 above re: other antibiotics. (3) Encephalopathy: Plan: Metabolic Encephalopathy - IMPROVED, nearly resolved. MRI brain with stable findings. Confusion 2nd to #1/#2. Cont supportive care. (4) TR (acute kidney injury): Plan: Resolved. (5) Non-small cell cancer of left lung: Plan: Lung adenocarcinoma status post SBRT, biopsy-proven mets on left rib, etc. Was taking Targrisso (osimertinib) 80 mg daily pre-admission. On hold due to #1, #2. (6) Meningioma: Plan: stable, likely not contributing to presentation (7) Hypothyroidism: Plan: Continue Synthroid 112 mcg daily TSH Feb 2021 WNL (8) Chronic obstructive pulmonary disease: Plan: stable, no flare pt takes Anoro Elipta - will order for am (9) Depression with anxiety: Plan: Stable - cont escitalopram 20 mg daily (10) Leukopenia: Plan: 2nd to tick-borne disease? 2nd to Tagrisso? cbc in am for stability no neutropenia at this time Plan: resume heparin tomorrow (has been >24 hours since LP) 2 daughters extensively updated at bedside today and yesterday send CSF fluid for path given her NSCLC but doubt leptomeningeal involvement from cancer PT catherine completed - cleared for d/c home once medically stable Admission and Anticipated Discharge Date Admission Date: April 10, 2021 Subjective no events overnight daughter at bedside today pt continues to feel tired - admits to poor sleep x 2 straight nights she is anxious to go home her mentation is improving and appetite is improving as well continues with rash on legs/arms but still not itchy tele overnight - NSR; no NSVT Review of Systems Review of Systems: gen - no fevers or chills cv - no cp neuro - no headaches pulm - no cough/congestion GI - no N/V/D Physical Exam Physical Exam: gen - nontoxic, looks good, NAD; confusion improved mouth - MMM, no thrush neck - no JVD; large lymph node left neck? heart - RRR, s1 s2 lungs - cta b/l abd - soft NT ND BS+; no HSM ext - no edema, pulses 2+ b/l skin - mild "akosua" cheeks b/l but less intense today; mild erythematous macular rash on thighs - faint, not raised, no scale, no urticaria - unchanged from yesterday; mild erythematous, macular rash on proximal arms Results & Data Results & Data ([facility]) Vital Signs (Past 12 Hours) Vital Signs Temp Pulse Pulse Resp BP Pulse Ox Pulse Ox 04/16/21 15:35 36.8 C 65 18 132/86 95 04/16/21 14:52 66 04/16/21 11:20 36.8 C 62 98 H 129/66 98 04/16/21 09:00 95 04/16/21 07:23 36.7 C 75 20 152/79 H 97 04/16/21 07:20 66 Laboratory Results Laboratory Results - last 24 hr 04/16/21 04/16/21 04/16/21 05:46 05:46 05:46 WBC 4.49 L RBC 4.05 L Hgb 10.4 L Hct 32.5 L MCV 80.2 MCH 25.7 MCHC 32.0 RDW Std Deviation 44.9 RDW Coeff of Shalom 15.3 H Plt Count 177 MPV 10.2 Creatinine 0.86 Est Cr Clr Drug Dosing 56.8 Est GFR ( Amer) 77.1 Est GFR (Non-Af Amer) 66.6 Vancomycin Trough 14.5 Diagnostic Findings CSF culture pending but thus far neg x 48 hours PG Care Time/CCT Total # of Minutes Spent Total Time Spent with Patient: Total time spent is greater than 50% in coordination of care (as documented) at patient's floor/unit and/or counseling patient: Coding Level of Care Code 04945 Subseq Hosp Care Lvl 2 Diagnoses Acute Lyme disease with neurological disease A69.22 Fever R50.9 Encephalopathy G93.40 TR (acute kidney injury) N17.9 Non-small cell cancer of left lung C34.92 Meningioma D32.9 Hypothyroidism E03.9 Chronic obstructive pulmonary disease J44.9 Depression with anxiety F41.8 Leukopenia D70.1; T45.1X5A Leukopenia type: neutropenia Neutropenia type: secondary to cancer chemotherapy (1) Leukopenia Leukopenia type: neutropenia Neutropenia type: secondary to cancer chemotherapy Qualified Code(s): D70.1 - Agranulocytosis secondary to cancer chemotherapy; T45.1X5A - Adverse effect of antineoplastic and immunosuppressive drugs, initial encounter
[2021-04-16] MEDS: FEXOFENADINE 60 MG TAB PO SCH (21:37)
[2021-04-16] MEDS: MELATONIN 3 MG TAB PO SCH (21:38)
[2021-04-17] MEDS: LEVOTHYROXINE SODIUM 112 MCG TABLET PO SCH (06:18)
[2021-04-17 07:59] LABS: Hemoglobin 10.9 g/dL (12.0-16.0); Lymphocytes # (auto) 0.88 K/uL (1.2-3.4); Lymphocytes % (auto) 24.6 %; Mean Corpuscular Hemoglobin 25.8 pg (25-34); Mean Corpuscular Hgb Conc 32.1 g/dL (32-36); Mean Corpuscular Volume 80.4 fL (80-100); Mean Platelet Volume 9.6 fL (7.4-10.4); Monocytes # (auto) 0.34 K/uL (0.11-0.59); Monocytes % (auto) 9.5 %; Neutrophils # (auto) 2.36 K/uL (1.4-6.5); Neutrophils % (auto) 65.9 %; Platelet Count 205 K/uL (130-400); RDW Coefficient of Variation 15.4 % (11.5-14.5); RDW Standard Deviation 45.1 fL (36.4-46.3); Red Blood Count 4.23 M/uL (4.2-5.4); White Blood Count 3.58 K/uL (4.8-10.8)
[2021-04-17 08:19] LABS: BUN Creatinine Ratio 12.5 (10-20); Calcium 8.6 mg/dl (8.5-10.1); Creatinine Clr Calc Pharmacy 61.1 ml/min; Est GFR (African American) 84.2 ml/min; Est GFR (Non-African American) 72.6 ml/min; Potassium 3.6 mmol/L (3.5-5.1)
[2021-04-17] MEDS: FOLIC ACID 1 MG TAB PO SCH (08:56)
[2021-04-17] MEDS: ADVANCED PROBIOTIC 1250 MG CAPSULE PO SCH (08:56)
[2021-04-17] MEDS: MONTELUKAST SODIUM 10 MG TABLET PO SCH (08:56)
[2021-04-17] MEDS: FENOFIBRIC ACID 45 MG PO SCH (08:57)
[2021-04-17] MEDS: FEXOFENADINE 60 MG TAB PO SCH ×2 (08:57→21:13)
[2021-04-17] MEDS: ESCITALOPRAM OXALATE 20 MG TAB PO SCH (08:57)
[2021-04-17] MEDS: UMECLIDINIUM/VILANTEROL 62.5/25MCG 7 PUFFS/INHALER INH SCH (10:20)
[2021-04-17] MEDS: cefTRIAXone SODIUM 2,000 MG in DEXTROSE 5% 50 ML IV SCH (14:33)
[2021-04-17] MEDS: HEPARIN SOD 5,000 UNIT/0.5 ML VIAL SQ SCH ×2 (16:47→23:47)
--- NOTE | 2021-04-17 19:39 | Hospitalist Progress Note ---
Date of Service April 17, 2021 Assessment & Plan (1) Acute Lyme disease with neurological disease: Plan: Extensive w/u for her fever has been negative except for her lyme screen (IgG+, IgM equivacol). LP with 17 wbcs concerning for meningitis - either viral vs tick-borne. Bacterial causes ruled out with negative culture, negative CSF biofire, etc. Western blot returned with 3 IgG bands positive - same ones when she had Lyme several years ago. IgM only 1 band. CSF Lyme DNA is pending. Remains on rocephin 2 grams IV daily to cover for possible neuro-lyme. In light of Western blot findings perhaps pt's clinical course was explained best by a viral pathogen. Her rash looks very viral-like (see #2). If viral perhaps then she had viral meningitis. Will ask ID to weight in on this tomorrow. (2) Fever: Plan: [employer] Lyme vs viral meningitis versus chemotherapy reaction vs other. I do not suspect her chemo caused her presentation. Nikolai cheeks, lacy erythematous rash on legs, 17 wbcs in CSF - again could be viral (parvo, mono, CMV??). Given her western blot findings for Lyme will indeed check for acute parvo/EBV/CMV in am with titers. Chest imaging neg for pneumonia. Urine culture negative. Blood cx's negative. MRI brain without signs of encephalitis. 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 Continue IV rocephin until ID consult is complete and Lyme CSF DNA has returned. (3) Encephalopathy: Plan: Metabolic Encephalopathy - IMPROVED/resolved. MRI brain with stable findings. Confusion 2nd to #1/#2. Cont supportive care. (4) TR (acute kidney injury): Plan: Resolved. (5) Non-small cell cancer of left lung: Plan: Lung adenocarcinoma status post SBRT, biopsy-proven mets on left rib, etc. Was taking Targrisso (osimertinib) 80 mg daily pre-admission. On hold due to #1, #2. (6) Meningioma: Plan: stable, likely not contributing to presentation (7) Hypothyroidism: Plan: Continue Synthroid 112 mcg daily TSH Feb 2021 WNL (8) Chronic obstructive pulmonary disease: Plan: stable, no flare pt takes Anoro Elipta - will order for am (9) Depression with anxiety: Plan: Stable - cont escitalopram 20 mg daily (10) Leukopenia: Plan: 2nd to tick-borne disease? 2nd to Tagrisso? CBC remains stable no neutropenia at this time Plan: heparin DVT proph pt with b/l LE edema - in light of advanced cancer will check dopplers to r/o DVT daughters x 2 updated this week at bedside cleared for home by PT Admission and Anticipated Discharge Date Admission Date: April 10, 2021 Subjective patient asking when she can d/c home she is feeling very good eating well ambulating strength is improved tele overnight wnl no fevers no new complaints Review of Systems Review of Systems: gen - no fevers, chills, fatigue or anorexia cv - no cp; c/o b/l leg edema pulm - no cough GI - no N/V/D skin - ongoing rash on legs - NOT pruritic Physical Exam Physical Exam: gen - nontoxic, looks great today mouth - MMM, no thrush neck - no JVD heart - RRR, s1 s2, no murmur lungs - CTA b/l abd - soft NT ND BS+; no HSM ext - <1+ edema, pulses 2+ b/l skin - mild "nikolai" cheeks b/l but fading; mild erythematous macular/lacy rash on thighs - faint, not raised, no scale, no urticaria - unchanged from yesterday; mild erythematous, macular rash on proximal arms; mild erythematous rash on flanks; back is spared; distal legs are spared; hands/feet not affected; no lyme erythema migrans Results & Data Results & Data ([facility]) Vital Signs (Past 12 Hours) Vital Signs Temp Pulse Pulse Pulse Pulse Resp BP 04/17/21 19:22 37.2 C 60 18 151/73 H 04/17/21 15:31 37.1 C 60 20 146/73 H 04/17/21 14:39 62 04/17/21 10:49 36.7 C 68 17 130/72 04/17/21 09:00 Pulse Ox Pulse Ox 04/17/21 19:22 96 04/17/21 15:31 94 04/17/21 14:39 04/17/21 10:49 96 04/17/21 09:00 96 Laboratory Results Laboratory Results - last 24 hr 04/12/21 04/17/21 04/17/21 14:33 07:38 07:38 WBC 3.58 L RBC 4.23 Hgb 10.9 L Hct 34.0 L MCV 80.4 MCH 25.8 MCHC 32.1 RDW Std Deviation 45.1 RDW Coeff of Shalom 15.4 H Plt Count 205 MPV 9.6 Immature Gran % (Auto) 0.0 Neut % (Auto) 65.9 Lymph % (Auto) 24.6 [place] % (Auto) 9.5 Eos % (Auto) 0.0 Baso % (Auto) 0.0 Neut # (Auto) 2.36 Lymph # (Auto) 0.88 L [place] # (Auto) 0.34 Eos # (Auto) 0.00 Baso # (Auto) 0.00 Immature Gran # (Auto) 0.00 Sodium 138 Potassium 3.6 Chloride 105 Carbon Dioxide 28 Anion Gap 5 BUN 10 Creatinine 0.80 Est Cr Clr Drug Dosing 61.1 Est GFR ( Amer) 84.2 Est GFR (Non-Af Amer) 72.6 BUN/Creatinine Ratio 12.5 Glucose 96 Calcium 8.6 Lyme IgG (Western Blot) NEGATIVE Lyme IgG 18 kDa Band REACTIVE A Lyme IgG 23 kDa Band REACTIVE A Lyme IgG 28 kDa Band NON-REACTIVE Lyme IgG 30 kDa Band NON-REACTIVE Lyme IgG 39 kDa Band NON-REACTIVE Lyme IgG 41 kDa Band REACTIVE A Lyme IgG 45 kDa Band NON-REACTIVE Lyme IgG 58 kDa Band NON-REACTIVE Lyme IgG 66 kDa Band NON-REACTIVE Lyme IgG 93 kDa Band NON-REACTIVE Lyme IgM Ab (WB) NEGATIVE Lyme IgM 23 kDa Band REACTIVE A Lyme IgM 39 kDa Band NON-REACTIVE Lyme IgM 41 kDa Band NON-REACTIVE PG Care Time/CCT Total # of Minutes Spent Total Time Spent with Patient: Total time spent is greater than 50% in coordination of care (as documented) at patient's floor/unit and/or counseling patient: Coding Level of Care Code 80710 Subseq Hosp Care Lvl 2 Diagnoses Acute Lyme disease with neurological disease A69.22 Fever R50.9 Encephalopathy G93.40 TR (acute kidney injury) N17.9 Non-small cell cancer of left lung C34.92 Meningioma D32.9 Hypothyroidism E03.9 Chronic obstructive pulmonary disease J44.9 Depression with anxiety F41.8 Leukopenia D70.1; T45.1X5A Leukopenia type: neutropenia Neutropenia type: secondary to cancer chemotherapy (1) Leukopenia Leukopenia type: neutropenia Neutropenia type: secondary to cancer chemotherapy Qualified Code(s): D70.1 - Agranulocytosis secondary to cancer chemotherapy; T45.1X5A - Adverse effect of antineoplastic and immunosuppressive drugs, initial encounter
[2021-04-17] MEDS: MELATONIN 3 MG TAB PO SCH (21:13)
[2021-04-18 01:55] LABS: 18KDIGG Band REACTIVE; 23KDIGG Band REACTIVE; 23KDIGM Band REACTIVE; 28KDIGG Band NON-REACTIVE; 30KDIGG Band NON-REACTIVE; 39KDIGG Band NON-REACTIVE; 39KDIGM Band NON-REACTIVE; 41KDIGG Band REACTIVE; 41KDIGM Band NON-REACTIVE; 45KDIGG Band NON-REACTIVE; 58KDIGG Band NON-REACTIVE; 66KDIGG Band NON-REACTIVE; 93KDIGG Band NON-REACTIVE; Lyme Antibodies, WB IgG NEGATIVE (NEGATIVE); Lyme Antibodies, WB IgM NEGATIVE (NEGATIVE)
[2021-04-18] MEDS: LEVOTHYROXINE SODIUM 112 MCG TABLET PO SCH (06:29)
[2021-04-18] MEDS: HEPARIN SOD 5,000 UNIT/0.5 ML VIAL SQ SCH ×2 (06:30→14:00)
[2021-04-18 06:48] LABS: Hematocrit (blood only) 32.9 % (37-47); Hemoglobin 10.5 g/dL (12.0-16.0); Immature Granulocytes # (auto) 0.01 K/uL (0.00-0.02); Immature Granulocytes % (auto) 0.3 %; Lymphocytes # (auto) 0.74 K/uL (1.2-3.4); Lymphocytes % (auto) 24.7 %; Mean Corpuscular Hemoglobin 25.7 pg (25-34); Mean Corpuscular Hgb Conc 31.9 g/dL (32-36); Mean Corpuscular Volume 80.4 fL (80-100); Mean Platelet Volume 9.4 fL (7.4-10.4); Monocytes # (auto) 0.29 K/uL (0.11-0.59); Monocytes % (auto) 9.7 %; Neutrophils # (auto) 1.96 K/uL (1.4-6.5); Neutrophils % (auto) 65.3 %; Platelet Count 206 K/uL (130-400); RDW Coefficient of Variation 15.4 % (11.5-14.5); Red Blood Count 4.09 M/uL (4.2-5.4)
--- NOTE | 2021-04-18 06:48 | Ultrasound Report ---
BILATERAL LOWER EXTREMITY VENOUS DOPPLER HISTORY: Acute pain and swelling of the lower legs edema, stage 4 lung cancer; eval DVT either leg COMPARISON STUDY: None. FINDINGS: There is normal compressibility, flow, and augmentation within the bilateral lower extremit y deep venous systems. IMPRESSION: No DVT within the right or left lower extremity. ACT 112: Negative or not required by law. Electronically signed by: Kosta Paiz M.D. 04/18/2021 6:46 AM
[2021-04-18] MEDS: UMECLIDINIUM/VILANTEROL 62.5/25MCG 7 PUFFS/INHALER INH SCH (08:39)
[2021-04-18] MEDS: ESCITALOPRAM OXALATE 20 MG TAB PO SCH (08:39)
[2021-04-18] MEDS: FOLIC ACID 1 MG TAB PO SCH (08:39)
[2021-04-18] MEDS: FEXOFENADINE 60 MG TAB PO SCH (08:40)
[2021-04-18] MEDS: MONTELUKAST SODIUM 10 MG TABLET PO SCH (08:40)
[2021-04-18] MEDS: ADVANCED PROBIOTIC 1250 MG CAPSULE PO SCH (08:40)
[2021-04-18] MEDS: FENOFIBRIC ACID 45 MG PO SCH (08:41)
[2021-04-18] MEDS: cefTRIAXone SODIUM 2,000 MG in DEXTROSE 5% 50 ML IV SCH (13:36)
--- NOTE | 2021-04-18 17:00 | Discharge Summary ---
Date of Service date of admission - April 10, 2021 date of discharge - April 18, 2021 Admission HPI Per Admitting Provider Camila is a 75-year-old female with a history of stage IV metastatic lung cancer currently on oral chemotherapy who presents with 2 to 3 days of fevers, weakn ess, and confusion. Her case was discussed with her [facility] oncologist by ER provider who recommended admitting, following overnight with broad-spectrum antibiotics, and cultures. Case was discussed with pharmacy who recommended broad coverage with meropenem and following cultures. Has been for to medicine for admission 1 day of shaking with chills, headache, continued cough from cancer/ephysema. Her son noticed more memorly lapse and confusion that normal. Called [facility] to discuss her care who recommended coming to the ER. Jazmine was adament she did not want to go last night. This morning Jazmine's daughter noted she sounded confused and 'aloof' again and was concerned. Son found her at home having chills and confused. Temp 98.7*. Took 1x 500mg tylenol. Called [facility] again and they said bring her to the ER and presented for additional evaluation. Has had some body aches and leg aches since starting chemotherapy. Denies ulcers, skin wounds, open wounds. She has had chronic cough related to her cancer emphysema, this has not changed and she is not short of breath. Denies chest pain, chest pressure, difficulty breathing. No nausea/vomiting today, has had decreased appetite in the previous few days. No diarrhea/constipation Has not taken any daily medications including chemotherapy. Will have chemo brought in, has not taken today. Takes Tagrisso 80mg PO qHS. Started 2 1/2 weeks ago. This past had a [facility] followup. Principal Diagnosis Viral Syndrome Viral Meningitis Stage 4 Lung Cancer Discharge Exam gen - nontoxic, looks great, NAD mouth - MMM, no thrush neck - no JVD heart - RRR, s1 s2, no murmur lungs - CTA b/l abd - soft NT ND BS+; no HSM ext - trace edema b/l, pulses 2+ b/l skin - mild "nikolai" cheeks b/l but fading; mild erythematous macular/lacy rash on thighs - faint, not raised, no scale, no urticaria - improving/fading; mild erythematous, macular rash on proximal arms; mild erythematous rash on flanks; back is spared; distal legs are spared; hands/feet not affected; no lyme erythema migrans psych - a/o x 3 Discharge Data Allergies Allergy/AdvReac Type Severity Reaction Status Date / Time alendronate sodium Allergy Intermediate FLU LIKE Verified 04/20/21 11:30 SYMPTOMS Cephalosporins Allergy Intermediate Hives Verified 04/20/21 11:30 Penicillins Allergy Unknown UNKNOWN, Verified 04/20/21 11:30 TOLD A CHILD Consultations [facility] Infectious Diseases OT PT Procedures Performed 1. Echocardiogram - * EF 60-65% * normal valve function * mildly elevated PA Pressure (30-40mmHg) 2. Fluoro-Guided Lumbar Puncture by radiology Ordered Studies Chest X-Ray 04/10/21 13:53 XR chest 2V PA/lateral HISTORY: 75 years-old Female ILLNESS acute cough with history of lung cancer COMPARISON: Chest CT 06/13/2020 TECHNIQUE: PA and lateral views of the chest FINDINGS: The cardiomediastinal and hilar silhouettes are within normal limits. No pneumothorax, pleural effusion, airspace consolidation or overt pulmonary edema. Emphysema with chronic interstitial coarsening. 3.1 cm nodular opacity of the paramedian left upper lobe redemonstrated. Degenerative changes of the shoulders and spine. IMPRESSION: 1. No acute process. 2. Emphysema with chronic interstitial coarsening. 3. Left upper lobe lesion redemonstrated, better characterized on the comparison chest CT. ACT 112: Negative or not required by law. The above report was generated using voice recognition software. It may contain grammatical, syntax or spelling errors. Electronically signed by: Kosta Paiz M.D. 04/10/2021 3:[address] 04/10/21 17:25 CT head/brain wo con CLINICAL HISTORY: 75 years-old Female with confusion. Acutely altered mental status TECHNIQUE: Multiple axial CT images of the head were obtained without contrast. A dose lowering technique was utilized adhering to the principles of ALARA. CT DOSE: 537.48 mGy.cm COMPARISON: Brain MRI 01/28/2020 FINDINGS: No acute intracranial hemorrhage, midline shift, intra-axial mass, hydrocephalus, territorial ischemia or abnormal extra-axial collection. 1.2 cm partially calcified extra-axial lesion adjacent to the right frontal lobe is unchanged in size. Age-related involutional changes. The calvarium is intact. Probable osteoma of the left parietal calvarium again noted measuring 2.4 cm. Bilateral nav bullosa. The paranasal sinuses, mastoid air cells, and middle ear cavities are clear. IMPRESSION: 1. No acute intracranial abnormality. 2. Probable meningioma adjacent to the right frontal lobe redemonstrated measuring 1.2 cm. ACT 112: Negative or not required by law. The above report was generated using voice recognition software. It may contain grammatical, syntax or spelling errors. Electronically signed by: Kosta Paiz M.D. 04/10/2021 6:14 PM Chest CTA 04/12/21 16:44 CT angio chest PE protocol CLINICAL HISTORY: PE, shortness of breath, fever TECHNIQUE: Multidetector row helical CT of the chest was performed. Coronal and sagittal reformations were obtained. Coronal and sagittal MIPS were obtained from the axial data set and were submitted for review. Automated dose lowering techniques and/or adjustment according to patient size were utilized for this exam. Comparison: Comparison is made to chest CT 06/13/2020 FINDINGS: Lungs and pleura: Diffuse centrilobular emphysema is seen most prominent in the upper lobes. There is a 2.6 cm nodule in the left upper lobe (series 3 image 95) and a 5 mm nodule in the right upper lobe (image 100). These are unchanged from prior exam. Heart and pericardium: Heart size is normal. No pericardial effusion. Vessels: The pulmonary trunk is enlarged measuring 35 mm. No pulmonary embolism is seen. Incidentally noted is narrowing of the right subclavian artery with resultant collateral formation. Mediastinum and glenis: Subcentimeter lymph nodes are seen. Chest wall and lower neck: Unremarkable. Abdomen: Unremarkable. Bones: Unremarkable. IMPRESSION: No evidence of pulmonary embolism. Stable nodules in the bilateral upper lobes. ACT 112: Negative or not required by law. Electronically signed by: Satnam Dangelo M.D. 04/12/2021 8:27 PM Brain MRI 04/12/21 17:33 MR brain wo/w con HISTORY: 75 years-old Female known ?metastatic disease follow-up study in a patient with history of meningioma. Acute confusion COMPARISON: Head CT 04/10/2021, brain MRI 01/28/2020 TECHNIQUE: Multi planar multisequence MRI of the brain was obtained both with and without the use of 7 cc Gadavist FINDINGS: Tobacco Weigher localizer images demonstrate no gross extracranial abnormality. Partially empty sella. Mildly motion degraded exam. Midline structures are otherwise unremarkable. Degenerative changes of the imaged cervical spine. There is no restricted diffusion to suggest acute or subacute infarct. No pathologic blooming artifact. No acute intracranial hemorrhage, midline shift, abnormal extra axial collection, hydrocephalus or intra-axial mass. Avidly enhancing extra-axial dural based lesion adjacent to right frontal lobe on image 15 series 9 measures 1.3 x 0.9 x 1.0 cm, previously measured at 1.2 x 0.9 x 1.0 cm. No significant mass effect upon the adjacent brain parenchyma. No additional abnormal intra-axial or extra-axial enhancement. Mild involutional changes. Minimal T2/FLAIR hyperintense foci throughout the white matter suggest chronic microvascular ischemic disease. The cerebral venous sinuses and major arterial flow voids appear patent. Trace mastoid effusions. Paranasal sinuses are generally clear. The skull, orbits and soft tissues are otherwise unremarkable. 2.3 cm left parietal osteoma. IMPRESSION: 1. Motion degraded exam without acute intracranial abnormality. No acute or subacute infarct. 2. 1.3 cm enhancing extra-axial dural based lesion adjacent to the right frontal lobe suggestive of a meningioma measures up to 1.3 cm. This is stable to slightly increased in size from the 01/28/2020 exam. 3. 2.3 cm left parietal osteoma. ACT 112: Negative or not required by law. The above report was generated using voice recognition software. It may contain grammatical, syntax or spelling errors. Electronically signed by: Kosta Paiz M.D. 04/12/2021 1:58 PM Lumbar Puncture Fluoroscopy 04/14/21 12:00 FLUOROSCOPIC GUIDED LUMBAR PUNCTURE CLINICAL HISTORY: Fever of unknown origin. PROCEDURE: The risks, benefits, and alternatives to the procedure is discussed with the patient who voiced understanding. Written informed consent was obtained. The patient was placed prone on the fluoroscopy table. The lower back was prepped and draped in the usual sterile fashion. 1% lidocaine was used for local anesthesia. A 20-gauge spinal needle was inserted into the L3-L4 interlaminar space, and approximately 10 cc of clear colorless cerebrospinal fluid was removed. 2 spot images were saved. The patient tolerated the procedure well. There were no immediate complications. The patient was then returned to the medical floor for further observation. Fluoroscopy time: 0.3 minutes IMPRESSION: Fluoroscopic guided lumbar puncture with removal of approximately 10 cc of cerebrospinal fluid. There were no immediate complications. ACT 112: Negative or not required by law. Electronically signed by: Freddy Collado M.D. 04/14/2021 2:51 PM Venous Doppler Study 04/17/21 15:43 BILATERAL LOWER EXTREMITY VENOUS DOPPLER HISTORY: Acute pain and swelling of the lower legs edema, stage 4 lung cancer; eval DVT either leg COMPARISON STUDY: None. FINDINGS: There is normal compressibility, flow, and augmentation within the bilateral lower extremity deep venous systems. IMPRESSION: No DVT within the right or left lower extremity. ACT 112: Negative or not required by law. Electronically signed by: Kosta Paiz M.D. 04/18/2021 6:46 AM Hospital Course (1) Viral syndrome: Patient presented with fever, altered mental status, and weakness. She was also noted to have a rash on her legs. She underwent an extensive w/u for her fever. Chest imaging was negative for pneumonia. Urine culture negative. Blood cx's negative. MRI brain without signs of encephalitis. 2.3 cm left parietal osteoma and a 1.3 cm stable meningioma were seen on MRI brain. Lyme screen showed IgG+ and IgM was equivocal. Western blot was dispatched. Anaplasmosis screen was negative. Radiology performed lumbar puncture under fluoroscopy. CSF demonstrated 17 WBCs concerning for meningitis - either viral vs tick-borne. Bacterial causes were ruled out with negative CSF culture, negative CSF Biofir e, etc. CSF Lyme DNA was pending at discharge but is anticipated to be negative. She received rocephin IV until her Lyme Western Blot returned negative. At that time antibiotics were discontinued. On day of discharge the patient underwent a Telehealth Infectious Disease consult by [employer]. It was felt that in light of her negative Lyme Western blot and negative work-up for bacterial pathogens that her presentation/clinical course were likely 2nd to a viral pathogen. Indeed her rash was highly suggestive of a viral exanthem. At discharge a mono virus DNA, mono virus ab titer, parvovirus ab, and CMV ab were sent. RPR was pending. Bartonella was pending. She was not discharged on any antibiotics. Finally, it was NOT felt that her presentation was due in part to her recently instituted Tagrisso. (2) Viral meningitis: Lumbar puncture cell counts showed mildly elevated WBCs (17) and mildly elevated total protein. Gram stain and culture were negative. CSF BioFire panel was negative. CSF Lyme DNA was pending at discharge but it is anticipated to be negative. In light of her extensive work-up being negative for a bacterial source it was felt that she likely had had a case of viral meningitis. She should make an excellent recovery from this. The patient progressed nicely later in her stay and essentially all presenting symptoms were resolved by discharge. (3) Fever: 2nd to #1/#2. Resolved. (4) Encephalopathy: Metabolic Encephalopathy - resolved with supportive care. MRI brain with stable findings. No evidence of metastatic disease to the brain, encephalitis, or stroke. Confusion was 2nd to #1/#2. Again - side effects from her Tagrisso were NOT suspected. (5) TR (acute kidney injury): Resolved. Peak Cr 1.37. Discharge Cr 0.8. (6) Non-small cell cancer of left lung: Lung adenocarcinoma status post SBRT, biopsy-proven mets on left rib, etc. Was taking Tagrisso (osimertinib) 80 mg daily pre-admission. On hold due to #1, #2. I spoke with the patient's primary oncologist at [facility], Dr Katya Alvarado, on day of discharge. Plan is to hold the Tagrisso at time of discharge. A decision will be made in the week following discharge about when to resume the medication. Dr Alvarado will likely see Mrs Alejandro in clinic in ~2 weeks post-discharge. (7) Meningioma: stable, likely not contributing to presentation (8) Hypothyroidism: Continue Synthroid 112 mcg daily TSH Feb 2021 WNL (9) Chronic obstructive pulmonary disease: stable, no flare during the visit. pt takes Anoro Elipta. (10) Depression with anxiety: Stable - cont escitalopram 20 mg daily (11) Leukopenia: WBC range 1.5 to about 4.5 during the stay. Likely 2nd to Tagrisso. Viral suppression cannot be ruled out. ANC on day of discharge = 1960. The patient had mild but stable lymphopenia while here. Hemoglobin and platelets were acceptable during the stay. Total Time Total Time Spent Total Time Spent (In Minutes): 50 Discharge Plan Discharge Items Patient Disposition: Home - Self-Care Reason For Visit: Confusion, fever, weakness Discharge Diagnosis: 1. Probable viral infection 2. Likely viral meningitis 3. Rash likely due to viral infection Activity: As commented below Activity Comment: gradually increase your activities over the next 7-10 days Driving/Machine Use: No driving until you see Dr Stearns Non-emergency contact: Primary Care Provider and Oncologist Call non-emergency contact if: you have any medication questions, your symptoms worsen and you have a fever Follow-up/Referrals: Freddy Stearns MD [Primary Care Provider] - 04/24/21 2:30 pm Katya Alvarado [Staff Physician] - (please call Dr Alvarado on 04/24/21, to give him an update on how you are doing; he will give you guidance then about what to do with your cancer drug, Tagrisso.) Diet: Regular Addtl Attending Provider Instructions: Michel Wilde were admitted to the hospital for fever, confusion, rash, and weakness. We did a large amount of testing looking for the cause of your symptoms. X-rays did not show pneumonia. Urine culture did not show urinary tract infection. Blood cultures were negative; thus, you did not have bacterial infection in your blood. MRI brain showed a small meningioma (benign tumor - nothing to do for this) but no stroke, cancer, or other concerning findings. COVID testing was negative. Initial lyme screening test was POSITIVE but the confirmatory test returned NEGATIVE making lyme disease unlikely. Your echocardiogram (ultrasound of the heart) was normal. You underwent a lumbar puncture ("spinal tap" - this removes fluid from the spinal canal) and the white blood cells in the fluid were mildly elevated. A small elevation of white cells is often seen in viral meningitis. We performed extensive testing on the spinal fluid and we did NOT find bacterial meningitis. A lyme test from the spinal fluid is pending but we anticipate it will be negative. With time your symptoms, rash, confusion, appetite, etc all improved. Your blood work also improved. It is suspected that you had a viral infection that caused your illness. We have tests for mono virus, parvovirus, and others that are pending at this time. We will let you know if any of these tests are positive. Of note - the spinal fluid was examined for cancer cells and we did NOT find cancer cells in the fluid from the spinal canal/brain. On 04/18/21 you had a consultation with [facility] Infectious Diseases and they, too, felt that you likely had a viral infection. It is not suspected that your illness was due to your cancer medication/chemotherapy. Since this was likely viral infection/viral meningitis I anticipate you will make a very good recovery over the next few weeks. Recommendations - 1. gradually increase your activities over the next 7-10 days 2. focus on good hydration and nutrition during your recovery at home 3. get plenty of good rest over the next week during your recovery 4. you do not need to put anything on the rash on your legs/arms; if the rash was from a virus it should resolve over the next 1-2 weeks; if you have any itching, however, you can take [id number] lavell or zyrtec or benadryl for such 5. again HOLD your Tagrisso at this time Follow-up - see separate section; be sure to contact your oncologist at [facility] on 04/24/21 to update them on your progress Return to [facility] if - * you have fevers over 100 degrees * you develop a severe headache, especially a headache that worsens with sitting or standing * you have worsening confusion * you have shortness of breath or chest pains * your rash worsens rather than improves * any other concerns It was our pleasure caring for you at [facility]! Please continue to feel better, Dr Munoz Pending Studies at Discharge: Yes Studies:: Testing for Lares Virus, Parvo Virus, etc - labs should return in about 1 week Stand-Alone Forms: My [facility], Smoking Cessation Medications and DC Order Prescriptions: Continued fluticasone propionate [Flonase Allergy Relief] 50 mcg/actuation spray,suspension 2 sprays INTRANASAL QAM PRN (Reason: Congestion) RF: 0 montelukast [Singulair] 10 mg tablet 10 mg PO DAILY Qty: 90 RF: 3 albuterol sulfate 90 mcg/actuation HFA aerosol inhaler 2 puff inhalation Q4H PRN (Reason: shortness of breath or wheezing) Qty: 18 RF: 3 escitalopram oxalate 20 mg tablet 20 mg PO DAILY Qty: 90 RF: 3 fenofibric acid (choline) 45 mg capsule,delayed release(DR/EC) 45 mg PO QAM Qty: 90 RF: 3 meloxicam 15 mg tablet 15 mg PO DAILY PRN (Reason: pain) Qty: 30 RF: 5 benzonatate 100 mg Capsule 100 mg PO TID PRN (Reason: Cough) RF: 0 folic acid 1 mg tablet 1 mg PO DAILY RF: 0 ondansetron HCl 8 mg tablet 8 mg PO Q12H PRN (Reason: Nausea) RF: 0 prochlorperazine maleate 10 mg tablet 10 mg PO QID PRN (Reason: Nausea) RF: 0 Discontinued Tagrisso 80 mg tablet 80 mg PO QPM RF: 0 No Action Anoro Ellipta 62.5-25 mcg/actuation blister with device 1 inh inhalation DAILY RF: 0 osimertinib [Tagrisso] PO RF: 0 levothyroxine 112 mcg tablet 112 mcg PO DAILY Qty: 90 RF: 3 Discharge Orders: Discharge Order (Routine); Ordered 04/18/21 Ordered By: Kulwant Munoz Admission Data Admit Date/Time: 04/10/21 19:03 Attending Provider: Kulwant Munoz Admit Provider: Maikol Gardner Primary Care Provider: Freddy Stearns Other Providers: Maikol Gardner ; Altaf Merrill ; Nicole Marsk ; Adi Nelson I. ; Errol Terry II ; Juanita Juarez ; Arden Gutéirrez ; Pankaj Trinidad Other Interventions: Discharge Summary Assessment (RN) Last Done: 04/18/21 17:12 Coding Level of Care Code D/C DAY MANAGEMENT >30 MINS Diagnoses Fever R50.9 Encephalopathy G93.40 TR (acute kidney injury) N17.9 Non-small cell cancer of left lung C34.92 Meningioma D32.9 Hypothyroidism E03.9 Chronic obstructive pulmonary disease J44.9 Depression with anxiety F41.8 Leukopenia D70.1; T45.1X5A Leukopenia type: neutropenia Neutropenia type: secondary to cancer chemotherapy Viral meningitis A87.9 Viral syndrome B34.9
[2021-04-18 20:12] LABS: Lyme DNA PCR CSF or Synovial Not detected (Not Detected); Lyme DNA Source CSF; Lyme IgG Band Pattern CSF DNR; Lyme IgG CSF NO BANDS DETECTED; Lyme IgM Band Pattern CSF DNR; Lyme IgM CSF NO BANDS DETECTED
[2021-04-22 18:56] LABS: Bartonella henselae IgG Negative; Bartonella henselae IgM Ab Negative; Bartonella quintana IgG Ab Negative; Bartonella quintana IgM Ab Negative; EBV DNA Quant PCR <200 copies/mL (<200); EBV DNA Quant Source Whole Blood
[2021-04-23 02:08] LABS: CMV IgM Antibody <30.00 AU/mL; Parvovirus IgG 1.3 (<0.9); Parvovirus IgM 0.1 (<0.9)
== END 2021-04-18 18:04 | disposition home or self-care (01) | DRG 75 ==
LOC: ED 12:53 → EDINP 19:03 → SUATTDRO 19:03 → 2W 04-11 16:00